=== PATIENT | male | born 1945 | race Caucasian/White ===

== ENCOUNTER → 2018-01-30 11:27 | Outpatient (CLI) | payer OTHER, MEDICARE, SELFPAY ==
[2018-01-30 12:42] LABS: Anion Gap 7 (5-15); BUN 19 mg/dL (7-18); BUN/Creat Ratio 21.5 RATIO (10-20); Calcium,Total 9.5 mg/dL (8.5-10.1); Chloride 105 mmol/L (98-107); Creatinine, Serum 0.88 mg/dL (0.70-1.30); EST Glomerular Filtration Rate 90 mL/min (>60); Est Glom Filt Rate - Afr Amer 109 mL/min (>60); Glucose 128 mg/dL (74-106); Potassium 3.9 mmol/L (3.5-5.1); Sodium Level 138 mmol/L (136-145)
== END ==
PROVIDERS: Family Provider Internal Medicine; PCP Internal Medicine; Visit Provider Internal Medicine Cardiovascular Disease
DX: I10 Essential (primary) hypertension (principal)
CPT/HCPCS: 36415; 80048

== ENCOUNTER → 2018-03-08 11:15 | Outpatient (CLI) | payer OTHER, MEDICARE, SELFPAY ==
[2018-03-08 12:44] LABS: AST(SGOT) 54 U/L (15-37); Alanine Aminotransfer ALT/SGPT 72 U/L (16-61); Albumin, Serum 3.5 g/dL (3.2-5.0); Alkaline Phosphatase 75 U/L (45-117); Bilirubin, Direct 0.13 mg/dL (0.00-0.30); Cholesterol 111 mg/dL (200); Globulin 3.6 g/dL (2.2-4.2); High Density Lipoprotein 38 mg/dL; Protein, Total 7.1 g/dL (6.4-8.2); Triglycerides 103 mg/dL; Very Low Density Lipoprotein 21 mg/dL (5-40)
== END ==
PROVIDERS: Family Provider Internal Medicine; PCP Internal Medicine; Visit Provider Internal Medicine Cardiovascular Disease
DX: E78.5 Hyperlipidemia, unspecified (principal)
CPT/HCPCS: 36415; 80061; 80076

== ENCOUNTER → 2018-03-15 11:14 | Outpatient (CLI) | payer OTHER, MEDICARE, SELFPAY ==
[2018-03-15 12:54] LABS: Amphetamine Urine VISTA NEGATIVE (<1000 ng/mL); Barbiturate Urine VISTA NEGATIVE (< 200 ng/mL); Benzodiazepine Urine VISTA NEGATIVE (< 200 ng/mL); Cocaine Urine VISTA NEGATIVE (< 300 ng/mL); Ecstacy Urine VISTA NEGATIVE (< 500 ng/mL); Methadone Urine VISTA NEGATIVE (< 300 ng/mL); PCP Urine VISTA NEGATIVE (< 25 ng/mL); THC Urine VISTA NEGATIVE (< 50 ng/mL); Vista UDS pH Range 7
== END ==
PROVIDERS: Family Provider Internal Medicine; PCP Internal Medicine; Visit Provider Anesthesiology Pain Medicine
DX: F11.20 Opioid dependence, uncomplicated (principal)
CPT/HCPCS: 80307

== ENCOUNTER → 2018-03-23 06:44 | Outpatient (CLI) | payer OTHER, MEDICARE, SELFPAY ==
--- NOTE | 2018-03-23 06:47 | ECHOD_ITS ---
Reason For Study: CHF Procedure This was a 2D Doppler, Color Flow transthoracic echocardiogram. Exam performed in department. Left Ventricle Normal size and thickness. The estimated ejection fraction is 65 %. Stage 1 diastolic dysfunction. No regional wall motion abnormalities noted. Right Ventricle Normal size and thickness. Normal systolic function. Atria Normal left atrium. Normal right atrium. Normal atrial septum. Mitral Valve The mitral valve is structurally normal. No prolapse or stenosis seen. Tricuspid Valve Normal tricuspid valve. Trivial tricuspid valve insufficiency. Right ventricular systolic pressure estimated to be 40 mmHg. Mild pulmonary hypertension. Aortic Valve Trisinus/trileaflet aortic valve. Aortic sclerosis, no stenosis. Trivial aortic valve insufficiency. Pulmonic Valve Normal pulmonic valve. Great Vessels Normal aortic root. Normal arch. Normal inferior vena cava. Inferior vena cava collapse with sniff. Pericardium/Pleural No pericardial effusion. MMode/2D Measurements & Calculations LVIDd: 4.6 cm IVSd: 1.1 cm Ao root diam: 3.4 cm LVIDs: 2.6 cm LVPWd: 1.1 cm LA dimension: 3.5 cm RVDd: 3.2 cm FS: 44.8 % LAV(MOD-bp): 55.0 ml LA A4 area: 19.3 cm2 RA A4 area: 13.8 cm2 LAV(MOD-sp2): 56.2 ml LAV(MOD-sp4): 51.2 ml Doppler Measurements & Calculations MV E max fermin: 82.6 cm/sec Lat Peak E' Fermin: 7.4 cm/sec Med Peak E' Fermin: 7.7 cm/sec MV A max fermin: 108.5 cm/sec E/E' lat: 11.1 E/E' med: 10.7 MV E/A: 0.76 Ao V2 max: 148.3 cm/sec AI max fermin: 477.1 cm/sec LV V1 max: 136.9 cm/sec Ao max P.8 mmHg AI max P.2 mmHg LV V1 max P.5 mmHg AI dec slope: 363.3 cm/sec2 AI P1/2t: 384.6 msec PA V2 max: 70.4 cm/sec TR max fermin: 298.5 cm/sec TR max P.7 mmHg Interpretation Summary The estimated ejection fraction is 65 %. Stage 1 diastolic dysfunction. Trivial tricuspid valve insufficiency. Right ventricular systolic pressure estimated to be 40 mmHg. Trivial aortic valve insufficiency. Compared to echo report dated 02/27/2016, LV function has remained the same. Unable to quantitate RVSP at that time. Ordering Physician: Villa Solo Referring Physician: Mariposa Dickerson Performed By: Leyda Mascorro RDCS, RVT
--- NOTE | 2018-03-23 09:47 | STRESSREP ---
Stress Test Report Date: 03/23/2018 Procedure: Pharmacologic stress nuclear imaging study Indications: Shortness of breath/dyspnea Consent: Per the patient Procedure: The patient underwent pharmacologic (Regadenoson) evaluation with a peak heart rate of 112 beats per minute (74 predicted maximal heart rate) and a peak blood pressure of 148/82 mmHg. The baseline ECG demonstrated normal sinus rhythm. The peak pharmacologic ECG demonstrated no obvious ECG changes. There were no cardiac dysrhythmias pretest, during pharmacologic infusion, or recovery. There was no complaint of chest discomfort during pharmacologic infusion or recovery. The examination was discontinued secondary to completion of protocol. Impression: 1. Pharmacologic (Regadenoson) evaluation 2. Peak pharmacologic ECG with no obvious ECG changes. 3. There were no cardiac dysrhythmias pretest, during pharmacologic infusion, or recovery 4. Nuclear images pending Myocardial perfusion imaging study: Technique: The patient was injected with 14.5 millicuries of technetium 99m Cardiolite and subsequently rest SPECT Cardiolite nuclear imaging was obtained in the horizontal long, vertical long, and short axis views. The patient underwent pharmacologic (Regadenoson) evaluation with a peak heart rate of 112 beats per minute (74 % percent predicted maximal heart rate) and a peak blood pressure of 148/82 mmHg. The patient was injected with 44.2 millicuries of technetium 99m Cardiolite and subsequently stress SPECT Cardiolite nuclear imaging was obtained in the horizontal long, vertical long, and short axis views. A gated Cardiolite study at peak stress was obtained. Interpretation: Rest and stress SPECT Cardiolite nuclear imaging status post realignment, normalization, and attenuation correction demonstrate relative uniform tracer uptake and myocardial perfusion appearing within normal limits. There is end systolic thickening and brightening. The gated Cardiolite study demonstrates myocardial thickening and inward wall motion. The reported LVEF is 77 %. Impression: 1. Rest and stress SPECT Cardiolite nuclear imaging demonstrate relative uniform tracer uptake and myocardial perfusion appearing within normal limits. 2. The gated Cardiolite study reports an LVEF of 77%. This note was generated with [employer] software. It may contain incorrect words, spelling, and punctuation that were not noted in checking the note before signing.
== END ==
PROVIDERS: Family Provider Internal Medicine; PCP Internal Medicine; Visit Provider Internal Medicine Cardiovascular Disease
DX: I45.6 Pre-excitation syndrome (principal); E78.5 Hyperlipidemia, unspecified; I10 Essential (primary) hypertension; I48.0 Paroxysmal atrial fibrillation
CPT/HCPCS: 78452; 93017; 93306; A9500; A4216; J2785

== ENCOUNTER → 2019-03-06 | Outpatient (CLI) | payer OTHER, MEDICARE, SELFPAY ==
[2018-10-16 11:43] VITALS: BMI 31.6
--- NOTE | 2019-03-06 17:30 | MRI_ITS ---
STUDY: MRI LUMBAR SPINE WITHOUT CONTRAST REASON FOR EXAM: Male, 73 years old. Back pain TECHNIQUE: Standardized fat and water weighted pulse sequences were obtained in the sagittal and axial planes. COMPARISON: 02/04/2016 FINDINGS: T12-L1: Normal endplates. Normal disc height, hydration and morphology. Normal bilateral facet joints. Normal central canal and bilateral lateral recesses. Normal bilateral intervertebral neural foramina. Normal lumbar lordosis. There is no substantial scoliosis. Normal conus medullaris that terminates at the L2 level. Stable remote L5 superior endplate compression deformity with vertebroplasty changes. Stable moderate retropulsion at the L5 level. L1-2: Normal endplates. Normal disc height, hydration and morphology. Normal bilateral facet joints. Normal central canal and bilateral lateral recesses. Normal bilateral intervertebral neural foramina. L2-3: Bulging annulus and bilateral facet hypertrophy without compressive sequelae. L3-4: Bulging annulus and bilateral facet hypertrophy with mild bilateral foraminal stenoses. L4-5: Disc osteophyte complex and bilateral facet hypertrophy with mild bilateral foraminal stenoses. L5-S1: Bulging annulus and bilateral facet hypertrophy with mild right foraminal stenosis. Normal visualized sacral ala. Normal visualized paraspinous soft tissue structures. Left renal cyst. MRI/Spine Lumbar (Routine) IMPRESSION: Stable remote L5 superior endplate compression deformity with vertebroplasty changes. Stable moderate retropulsion at the L5 level. No acute compression fractures are seen. Multilevel degenerative disease as described. No evidence of nerve root impingement. Electronically Signed: Eliceo Vegas MD at 19:04 EDT Tel , Service support ,
== END | disposition home or self-care (01) ==
LOC: MRI 17:02
PROVIDERS: Family Provider Internal Medicine; PCP Internal Medicine; Referring Provider Anesthesiology Pain Medicine; Visit Provider Anesthesiology Pain Medicine
DX: M54.9 Dorsalgia, unspecified (principal); M79.606 Pain in leg, unspecified
CPT/HCPCS: 72148

== ENCOUNTER → 2019-05-11 08:59 | Outpatient (CLI) | payer OTHER, MEDICARE, SELFPAY ==
[2018-10-16 11:43] VITALS: BMI 31.6
[2019-05-11 11:42] LABS: AST(SGOT) 66 U/L (15-37); Alanine Aminotransfer ALT/SGPT 59 U/L (16-61); Albumin, Serum 3.5 g/dL (3.2-5.0); Alkaline Phosphatase 81 U/L (45-117); Bilirubin, Direct 0.15 mg/dL (0.00-0.30); Cholesterol 112 mg/dL (200); High Density Lipoprotein 26 mg/dL; Protein, Total 7.5 g/dL (6.4-8.2); Triglycerides 202 mg/dL; Very Low Density Lipoprotein 40 mg/dL (5-40)
== END ==
PROVIDERS: Family Provider Internal Medicine; PCP Internal Medicine; Referring Provider Internal Medicine Cardiovascular Disease; Visit Provider Internal Medicine Cardiovascular Disease
DX: E78.5 Hyperlipidemia, unspecified (principal); Z79.899 Other long term (current) drug therapy
CPT/HCPCS: 36415; 80061; 80076

== ENCOUNTER 2019-05-27 00:55 | Observation (INO) | payer OTHER, MEDICARE, SELFPAY ==
[2019-05-14 13:18] VITALS: BMI 30.5
[2019-05-27] VITALS (18 sets, daily range): BP systolic 92–196; BP diastolic 55–92; PULSE 69–97; RESP 16–23; TEMP 36.5–37.1; O2SAT 95–99; BMI 30.8; BMI 42.9
--- NOTE | 2019-05-27 01:06 | EKG12_ITS ---
Test Reason : STROKE ALERT Blood Pressure : / mmHG Vent. Rate : 080 BPM Atrial Rate : 080 BPM P-R Int : 146 ms QRS Dur : 086 ms QT Int : 424 ms P-R-T Axes : 031 024 023 degrees QTc Int : 489 ms Normal sinus rhythm Prolonged QT Abnormal ECG Confirmed by ALFREDITO REEVES, SHASHI ([id number]), supervising editor news reel ELLIOTT URIAS ([id number]) on 05/28/2019 1:49:20 PM Referred By: BB Confirmed By:SHASHI GLASER MD
--- NOTE | 2019-05-27 01:06 | CT_ITS ---
We are attempting to reach an attending provider to discuss findings. An addendum with communication details will be sent when the communication is complete. HISTORY: SLURRED SPEECH AND DIZZINESS WHILE OUTSIDE, HX HTN TECHNIQUE: CT angiogram of the brain was performed without and with IV contrast. CT angiogram images of the neck were obtained with IV contrast. 3D MIP and volume rendered reconstructions were reviewed to aid in vascular evaluation. A radiation dose optimization technique was used for this scan. IV Contrast dosage and agent: 100 ml Isovue 370 Number of images including paperwork: 714 COMPARISON: None CTA head: FINDINGS: BRAIN PARENCHYMA: No acute hemorrhage or mass. No definite acute infarct; MRI more sensitive. White matter hypodensity is nonspecific but most commonly seen with chronic ischemic changes. Generalized atrophy. EXTRA-AXIAL SPACES: No acute hemorrhage. VENTRICULAR SYSTEM: No hydrocephalus. PARANASAL SINUSES AND MASTOIDS: No air-fluid level in the imaged extent. Near complete opacification of the sphenoid sinuses. ORBITS: Unremarkable imaged extent. SKELETON AND SOFT TISSUES: Calvarium intact. ASPECTS score: 10 INTERNAL CAROTID ARTERIES: No significant stenosis of the intracranial segments. ANTERIOR CEREBRAL ARTERIES: No significant stenosis of the visualized segments. ANTERIOR COMMUNICATING ARTERY: Present. MIDDLE CEREBRAL ARTERIES: No significant stenosis of the visualized segments. VERTEBRAL ARTERIES: No significant stenosis of the intradural/visualized segments. BASILAR ARTERY: No significant stenosis. POSTERIOR CEREBRAL ARTERIES: No significant stenosis of the visualized segments. POSTERIOR COMMUNICATING ARTERIES: Present. No evidence of intracranial aneurysm or vascular malformation. IMPRESSION: 1. No acute intracranial abnormality. 2. No arterial occlusion, aneurysm or vascular malformation. CTA neck: FINDINGS: AORTIC ARCH AND BRANCHES: No dissection. RIGHT CCA: No occlusion, significant stenosis or dissection. RIGHT ICA: No occlusion, significant stenosis or dissection. Mild atherosclerotic plaque of the proximal ICA. LEFT CCA: No occlusion, significant stenosis or dissection. LEFT ICA: No occlusion, significant stenosis or dissection. Mild atherosclerotic plaque of the proximal ICA. RIGHT VERTEBRAL ARTERY: No occlusion, significant stenosis or dissection. LEFT VERTEBRAL ARTERY: No occlusion, significant stenosis or dissection. NECK SOFT TISSUES: Unremarkable. LUNG APICES: Unremarkable. BONES: Unremarkable. IMPRESSION: Unremarkable CT angiogram of the neck. Individualized dose optimization techniques were used for this CT. at 0133 Reported and signed by: Nanette Saleh MD Electronically Signed: Nanette Saleh MD at 1:32 EDT Tel , Service support , HISTORY: SLURRED SPEECH AND DIZZINESS WHILE OUTSIDE, HX HTN TECHNIQUE: CT angiogram of the brain was performed without and with IV contrast. CT angiogram images of the neck were obtained with IV contrast. 3D MIP and volume rendered reconstructions were reviewed to aid in vascular evaluation. A radiation dose optimization technique was used for this scan. IV Contrast dosage and agent: 100 ml Isovue 370 Number of images including paperwork: 714 COMPARISON: None CTA head: FINDINGS: BRAIN PARENCHYMA: No acute hemorrhage or mass. No definite acute infarct; MRI more sensitive. White matter hypodensity is nonspecific but most commonly seen with chronic ischemic changes. Generalized atrophy. EXTRA-AXIAL SPACES: No acute hemorrhage. VENTRICULAR SYSTEM: No hydrocephalus. PARANASAL SINUSES AND MASTOIDS: No air-fluid level in the imaged extent. Near complete opacification of the sphenoid sinuses. ORBITS: Unremarkable imaged extent. SKELETON AND SOFT TISSUES: Calvarium intact. ASPECTS score: 10 INTERNAL CAROTID ARTERIES: No significant stenosis of the intracranial segments. ANTERIOR CEREBRAL ARTERIES: No significant stenosis of the visualized segments. ANTERIOR COMMUNICATING ARTERY: Present. MIDDLE CEREBRAL ARTERIES: No significant stenosis of the visualized segments. VERTEBRAL ARTERIES: No significant stenosis of the intradural/visualized segments. BASILAR ARTERY: No significant stenosis. POSTERIOR CEREBRAL ARTERIES: No significant stenosis of the visualized segments. POSTERIOR COMMUNICATING ARTERIES: Present. No evidence of intracranial aneurysm or vascular malformation. IMPRESSION: 1. No acute intracranial abnormality. 2. No arterial occlusion, aneurysm or vascular malformation. CTA neck: FINDINGS: AORTIC ARCH AND BRANCHES: No dissection. RIGHT CCA: No occlusion, significant stenosis or dissection. RIGHT ICA: No occlusion, significant stenosis or dissection. Mild atherosclerotic plaque of the proximal ICA. LEFT CCA: No occlusion, significant stenosis or dissection. LEFT ICA: No occlusion, significant stenosis or dissection. Mild atherosclerotic plaque of the proximal ICA. RIGHT VERTEBRAL ARTERY: No occlusion, significant stenosis or dissection. LEFT VERTEBRAL ARTERY: No occlusion, significant stenosis or dissection. NECK SOFT TISSUES: Unremarkable. LUNG APICES: Unremarkable. BONES: Unremarkable. CT/CTA Head AND Neck W/ Contrast IMPRESSION: Unremarkable CT angiogram of the neck. Individualized dose optimization techniques were used for this CT. at 0133 Reported and signed by: Nanette Saleh MD Electronically Signed: Nanette Saleh MD at 1:33 EDT Tel , Service support ,
--- NOTE | 2019-05-27 01:07 | ED.VIS.STROK ---
History of Present Illness Chief Complaint: Neuro S/Sx Informant: Patient, Family, [facility] Onset: Hours - 1, at 0000 Context: Sudden Onset Timing: Continuous, Waxes and wanes Narrative: Patient states he went out onto the porch because he thought he heard someone messing with his car, he states that some point around that time he remembers feeling dizzy, like he was on a Iain wheel, and slurred speech was noticed by his . He does not think his speech is abnormal but she states this is very abnormal for him despite his loose dentures which she has had for 40 years. He states he is not feeling too dizzy right now. He does not remember turning his head, suddenly changing positions or anything else that was obviously related to the onset of symptoms. He did not feel like he was going to pass out, have any chest discomfort, shortness of breath, he has no neck pain, or any peripheral neurologic symptoms in his extremities. He has had no recent head injury. No recent bleeding from anywhere and is on no anticoagulants. No recent surgeries. Recently had some medication changes for blood pressure because it was high, his states that earlier tonight measured 190 systolic, but now it is measuring in the 90s. Patient does not notice dysarthria. states his speech is still not back to normal, but it is significantly better than it was before. He currently does not have the dizziness while resting on the cot. - Past Medical History (1) Chronic low back pain Status: Chronic (2) Hyperlipidemia Status: Chronic (3) Hypertension Status: Chronic (4) Paroxysmal atrial fibrillation Status: Chronic (5) Qgmzr-Umymzynba-Vmpzx (WPW) syndrome Status: Chronic Past Medical History - Allergies and Home Meds Allergies/Adverse Reactions: Allergies BETA BLOCKERS Adverse Reaction (Severe, Uncoded 05/27/19 00:58) SERRATO PARKINSON WHITE:CANNOT TAKE CALCIUM CHANNEL BLOCKERS Adverse Reaction (Severe, Uncoded 05/27/19 00:58) SERRATO PARKINSON WHITE: CANNOT TAKE DIGOXIN Adverse Reaction (Severe, Uncoded 05/27/19 00:58) SERRATO PARKINSON WHITE: CANNOT TAKE Primary Care Physician: Mariposa Dickerson MD [Primary Care Provider] - Lives: Spouse/ Significant Other Smoking Status: Never smoker Drugs: None Review of Systems General: Reports: Sweats. 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 Denies: Visual changes - bilaterally, Blurred vision - right, Diplopia ENT: Denies: Bilateral ear pain - And no ringing/hearing change, Rhinorrhea, Sore throat Cardiovascular: Denies: Chest pain, Palpitations Respiratory: Denies: Dyspnea, Cough, Dyspnea on exertion Gastrointestinal: Denies: Abdominal pain, Nausea, Vomiting, Diarrhea, Melena, Hematochezia Genitourinary: Denies: Dysuria, Hematuria, Frequency Musculoskeletal: Reports: Back pain - Chronic, unchanged, low back, Extremity Pain - Chronic knee pain bilaterally. Denies: Swelling Skin: Denies: Rash, Wounds Neurological: Reports: - - Dizziness. See HPI. Slurred speech.. Denies: Headache, Weakness, Numbness STROKE Vital Signs/Narrative: Vital Signs Temp Pulse Resp BP Pulse Ox 05/27/19 00:56 98.3 F 79 18 92/55 L 96 Inital Vital Signs reviewed: Yes - NIHSS Initial 1a Level of Consciousness: 0 1b LOC Questions (Score 2 if aphasic/stupor): 1 - Incorrect month, corrected himself after initially incorrect 1c LOC Commands (Only score 1st attempt): 0 2 Best Gaze (If aphasic, use reflexive mvmts.): 0 3 Visual: 0 4 Facial Palsy: 0 5 Motor Arm Right (UN = amputation/fusion): 0 5 Motor Arm Left: 0 6 Motor Leg Right: 0 6 Motor Leg Left: 0 7 Limb ataxia (Only + if out of proportion): 0 8 Sensory (Aphasia/stupor=0 or 1, coma=2): 0 9 Best Language: 0 10 Dysarthria (mute, coma=2, intubated=UN): 1 11 Extinction and Inattention (only scored if +): 0 Total Score: 2 General: Well nourished, Well developed Head: Normocephalic, Atraumatic Eyes: Perrl, EOMI ENT: Moist mucous membranes, No rhinorrhea Neck: Supple, Nontender, No lymphadenopathy, - - No carotid bruits bilaterally Cardiovascular: Regular rate, Regular rhythm, No murmurs, Normal S1, Normal S2 Respiratory: No distress, CTA bilaterally, Chest nontender Abdomen: Soft, Nontender, Nondistended, Normal bowel sounds Back: Nontender, Normal Inspection Extremities: Nontender, No edema. Negative for: Calf Tenderness Skin: Normal color, No rash, No Trauma Neurological: Alert, Oriented x3, Cranial nerves II-XII grossly intact, Normal Strength, Normal Sensation, - - Normal [id number]-[id number] and [id number]-[id number] bilaterally Psychological: Normal affect Diagnostic/Tx/Re-eval Received telephone call at 0136 from radiologist; negative plain CT and CTA. - Rhythm Strip Rhythm Strip: Sinus Rhythm Rate: 80 Ectopy: None - EKG Initial EKG Interpretation: Sinus Rhythm, No Acute Injury Pattern - Medical Decision Making Stroke Team Activated: Yes Reviewed Inclusion/Exclusion criteria: Yes Was Patient considered for Endovascular Intervention?: No - neg CTA, improving clinically IV Alteplase (t-PA) Administered: No - improving clinically Tele-stroke consultation performed emergently with [facility] using our video robot, after full evaluation, his NIH is now 0 per neurology and IV TPA is not indicated due to rapid improvement. Discussed with hospitalist who is okay with admitting him to PCU for stroke work-up. He is getting IV fluids and his pressure improved from the 90s to 114/57. He is feeling better he was allowed to drink some water and feels his speech is better because of that. states that his speech was almost unintelligible initially given her initial concern, that he was significantly improved upon arrival. He took his aspirin today earlier, 81 mg. Critical care time (excluding procedures): Including time spent: - Discussing with patient, family, consultants, arranging admission, direct patient care at the bedside. Total 35 minutes. ED Disposition - Plan for ED Patient: Disposition: Acute Care Hospital [facility] Diagnosis: TIA (transient ischemic attack), Renal insufficiency Referrals: Mariposa Dickerson MD [Primary Care Provider] -
[2019-05-27 01:11] LABS: Absolute Lymphocyte Count 1.42 X10^3/uL (0.83-4.51); Absolute Neutrophil Count 5.4 X10^3/uL (2.0-7.7); Basophil# 0.04 X10^3/uL; Basophil% 0.5 % (0-1); Eosinophil# 0.19 X10^3/uL; Eosinophils% 2.5 % (0-5); Hematocrit 31.8 % (40-54); Hemoglobin 10.9 g/dL (13.0-16.5); Lymphocyte # 1.42 X10^3/ul (4.0); Lymphocyte % 18.4 % (19-41); Mean Corp Hgb Conc 34.3 g/dL (32-36); Mean Corpuscular Hgb 33.1 pg (27.0-32.0); Mean Corpuscular Volume 96.7 fL (80-94); Monocyte# 0.61 X10^3/uL; Monocyte% 7.9 % (0-10); NRBC Flagged by Analyzer 0 % (0-5); Neutrophil # 5.42 X10^3/uL (2.7-7.7); Neutrophil % 70.2 % (47-70); Platelet Count 118 K/mm3 (150-450); RBC Distribution Width CV 13.1 % (11.6-14.6); RBC Distribution Width SD 46.5 fl (35.1-43.9); Red Blood Count 3.29 M/mm3 (4.6-6.2); White Blood Count 7.7 K/mm3 (4.4-11.0)
[2019-05-27 01:16] LABS: International Normalized Ratio 1.2; Prothrombin Time (Protime)PT. 15.3 SECONDS (11.7-14.9)
--- NOTE | 2019-05-27 01:23 | ED.RN ---
0110 TELE-STROKE NOTIFIED VIA PHONE, SPOKE TO DR GROSS.
--- NOTE | 2019-05-27 01:28 | ED.RN ---
DR ТАТЬЯНА SERRANO VIA TELESTROKE EXAMINING THE PT.
[2019-05-27 01:29] LABS: Anion Gap 6 (5-15); BUN 26 mg/dL (7-18); BUN/Creat Ratio 18.6 RATIO (10-20); Calcium,Total 8.7 mg/dL (8.5-10.1); Chloride 108 mmol/L (98-107); EST Glomerular Filtration Rate 53 mL/min (>60); Est Glom Filt Rate - Afr Amer 64 mL/min (>60); Estimated Creatinine Clearance 55.45 ml/min; Glucose 329 mg/dL (74-106); Potassium 3.9 mmol/L (3.5-5.1); Sodium Level 138 mmol/L (136-145)
--- NOTE | 2019-05-27 02:57 | HP.PCM_ITS ---
Problem List (1) Stroke-like symptoms Status: Acute (2) Hypersomnia Status: Inactive History of Present Illness Date of Admission: 05/27/19 Chief Complaint: WOBBLING GAIT AND SLURRY SPEECH The patient is a 74 year old M with a significant history of hypertension; hyperlipidemia; Edlq-Dqszajarl-Qehtf syndrome; and chronic pain who presented emergency department with wobbling gait and slurred speech. His symptoms started few hours (about 2 hours and 20minutes) before presentation .. Patient denies any change in his vision or swallowing difficulties. His patient was diaphoretic and clammy. Patient was questioning whether he took an accidental extra dose of his Zanaflex precipitating these symptoms. CTA head and neck at emergency department did not show any acute disease. Stroke alert was called at the emergency department and the case was discussed with tele-neurologist who recommended inpatient admission with stroke work-up. Per patient's because of hypertension and Strong Parkinson White syndrome patient is scheduled for an echocardiogram; stress test; sleep study and probable heart cath. Patient follows up with Dr. Solo, senior ssis developer. 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, G89.29 Osteoarthritis of hip M16.9 Allergies BETA BLOCKERS Adverse Reaction (Severe, Uncoded 05/27/19 00:58) ROJELIO VILLEGAS:CANNOT TAKE CALCIUM CHANNEL BLOCKERS Adverse Reaction (Severe, Uncoded 05/27/19 00:58) ROJELIO VILLEGAS: CANNOT TAKE DIGOXIN Adverse Reaction (Severe, Uncoded 05/27/19 00:58) ROJELIO VILLEGAS: CANNOT TAKE Home Medications: Ambulatory Orders Medication Instructions Recorded calcium carb-ergocalciferol (vit tab PO DAILY 01/20/18 D2) 600 mg calcium-200 unit tablet acetaminophen 500 mg tablet 1,000 mg PO QHS tab 02/03/18 aspirin 81 mg tablet,delayed 81 mg PO QDAY tab 02/03/18 release bisacodyl 5 mg tablet,delayed 5 mg PO QDAY PRN tab 02/03/18 release diphenhydramine 25 mg tablet 50 mg PO QHS PRN tab 02/03/18 docusate sodium 100 mg capsule 100 mg PO BID PRN 02/03/18 morphine ER 30 mg-naltrexone 1.2 1 cap PO QDAY 02/03/18 mg capsule, extend release, oral only multivitamin tablet 1 tab PO QDAY 02/03/18 oxycodone-acetaminophen 5 mg-325 1 tab PO TID PRN tab 02/03/18 mg tablet tizanidine 4 mg capsule 4 mg PO QHS PRN cap 10/16/18 potassium chloride ER 10 mEq 10 meq PO QDAY #30 cap 02/07/19 capsule,extended release simvastatin 20 mg tablet 20 mg PO QPM #90 tab 04/27/19 furosemide 40 mg tablet 40 mg PO DAILY #90 tab 05/14/19 losartan 50 mg tablet 50 mg PO BID #180 tab 05/14/19 Surgical History: Surgical History (Last Reviewed 05/27/19 @ 03:53 by Sundeep Matson MD) H/O kyphoplasty Z98.890 History of hand surgery Z98.890 multiple as a child, 19 surgeries for tendon repair of hands Lives: Spouse/ Significant Other Smoking Status: Never smoker Alcohol: None Drugs: None - *Family History Maternal Family History: Family History (Last Reviewed 05/27/19 @ 04:04 by Sundeep Matson MD) Sister Diabetes Father CAD (coronary artery disease) Myocardial infarction Mother COPD (chronic obstructive pulmonary disease) Review of Systems Constitutional: Denies: Chills, Fever, Weight Change HEENT: Denies: Head Aches, Sinus Congestion, Sinus Drainage Cardiovascular: Denies: Chest Pain, Palpitations Respiratory: Denies: Cough, Shortness of breath at rest, Sputum production Gastrointestinal: Denies: Abdominal Pain, Nausea, Vomiting Genitourinary: Denies: Dysuria Musculoskeletal: Denies: Joint Pain, Joint Tenderness Skin: Denies: Rash, Wounds Neurological: Reports: Slurred speech, Incoordination. Denies: Focal weakness, Numbness, Tingling Psychiatric: Denies: Anxiety, Depression, Homicidal Ideations, Suicidal Ideations Hematologic/ Lymphatic: Denies: Easy Bruising, Easy Bleeding VTE Information - Inpt Only VTE Present on Admission: No VTE Mechan Device Prophylaxis: SCD's VTE Pharm Prophylaxis ordered?: No Patient Problems: Active and Suspected Problems (Last Reviewed 05/27/19 @ 03:53 by Sundeep Matson MD) TIA (transient ischemic attack) (Acute) Renal insufficiency (Acute) Stroke-like symptoms (Acute) - Physical Exam General: Alert, Oriented x3, Cooperative HEENT: Atraumatic, PERRLA, EOMI, Normocephalic Neck: Supple, No JVD, Negative Carotid Bruits Lungs: Clear to auscultation, Normal air movement Cardiovascular: Regular rate, No murmurs Abdomen: Bowel Sounds Present, Soft, Non Tender Extremities: No edema, Capillary Refill Less than 3 Seconds Skin: No rashes, No breakdown Musculoskeletal: No Tenderness to Palpation of Joints or Extremities Neurological: Cranial nerves II-XII grossly intact - Except 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 There was no dysmetria. Strength 5/5 throughout. Psych/Mental Status: Normal Affect, Appropriate Vital Signs Temp Pulse Resp BP Pulse Ox 98.3 F 83 23 H 102/57 L 97 05/27/19 01:05 05/27/19 02:17 05/27/19 02:17 05/27/19 02:17 05/27/19 02:17 Oxygen Flow Rate (L/min) 2 Oxygen Delivery Method Room Air Weight: 106.5 kg Body Mass Index (BMI) 42.9 Finger Stick Blood Glucose 283 Laboratory Tests Past 24 Hrs 05/27/19 05/27/19 05/27/19 01:04 01:04 01:04 WBC 7.7 RBC 3.29 L Hgb 10.9 L Hct 31.8 L MCV 96.7 H MCH 33.1 H MCHC 34.3 RDW Std Deviation 46.5 H RDW Coeff of Nora 13.1 Plt Count 118 L MPV 9.0 Immature Gran % (Auto) 0.500 Neut % (Auto) 70.2 H Lymph % (Auto) 18.4 L Pickett % (Auto) 7.9 Eos % (Auto) 2.5 Baso % (Auto) 0.5 Absolute Neuts (auto) 5.4 Absolute Lymphs (auto) 1.42 Absolute Nucleated RBC 0.00 Nucleated RBC % 0 PT 15.3 H INR 1.2 APTT 32.0 Sodium 138 Potassium 3.9 Chloride 108 H Carbon Dioxide 24.0 Anion Gap 6 BUN 26 H Creatinine 1.40 H Estim Creat Clear Calc 55.45 Est GFR (MDRD) Af Amer 64 Est GFR (MDRD) Non-Af 53 L BUN/Creatinine Ratio 18.6 Glucose 329 H Calcium 8.7 Troponin I < 0.015 Assessment/Plan All Active Problems (Last Reviewed 05/27/19 @ 03:53 by Sundeep Matson MD) TIA (transient ischemic attack) (Acute) Renal insufficiency (Acute) Stroke-like symptoms (Acute) The patient is a 74 year old M with a significant history of hypertension; hyperlipidemia; Rkzm-Gdbsxhulj-Phzep syndrome; and chronic pain who presented emergency department with wobbling gait and slurred speech consistent with strokelike symptoms. Stroke- like symptoms NINDS NIH Scale was 2 initially. Later on it changed to a 0. CTA Head/Neck at the ED was unremarkable. Tele neurologist recommended a transthoracic echocardiogram, EKG, telemetry, MRI head, MRA head, MRA neck. Physical therapy, speech therapy, occupational therapy, bedside swallow evaluation, pneumatic compression boots, stroke education., Lipid profile, hemoglobin A1c, CMP, CBC differential, urinalysis. Ordered as such Daily aspirin continued. Home statin continued.. Although patient is noted to have very high blood pressure chronically, reported that paramedics found his blood pressure to be about 80/50. And on presentation at the hospital his blood pressure was 92/55. His systolic blood pressure was persistently in the 90s. With IV fluid his blood pressure was 114/57. We will continue patient on IV fluid especially as patient has GASTON. Discontinue all blood pressure medication at this time and allow for permissive hypertension. GASTON On presentation his creatinine was 1.40. Review of old records show that his creatinine 01/30/2018 was 0.88. Received normal saline bolus in the emergency department. Continue patient on gentle normal saline. BUN is 26. BUN over creatinine is 18.6. Probable ATN. Cannot rule out prerenal etiology. His reported patient takes Lasix because of pulmonary edema but patient does not have CHF. Lasix and Losartan held at this time.. Hold other nephrotoxic's. Trend BMP. Acute Hyperglycemia On presentation his glucose was 329. A1c as above Accu-Chek with correction scale insulin ordered. Hypotension Hold Losartan and Lasix Trend BP Received IVF at ED. Continue IVF Chronic pain Patient sees Dr. Coughlin, pain management. Morphine with naltrexone continued. Percocet continued. Tizanidine continued DVT prophylaxis SCD Code Visit OBSV E&M: 93041 Initial observation care L3
--- NOTE | 2019-05-27 03:11 | ED.RN ---
NIH DONE WITH PCU NURSE AND IT WAS A 0.
[2019-05-27] MEDS: 0.9% Normal Saline 1,000 ML 100 ML IV (03:30)
[2019-05-27] MEDS: Insulin Lispro 100 UNIT/ML INSULN.PEN SC ×4 (06:46→21:24)
[2019-05-27] MEDS: 0.9% NaCl Peripheral Flush Adult/Peds IV (06:47)
[2019-05-27] MEDS: oxyCODONE 5 MG Tablet PO ×3 (07:00→23:29)
[2019-05-27 07:24] LABS: Bacteria 0 SEEN /hpf (None Seen); Mucous, Urine 0 SEEN /hpf (<or=2+); Red Blood Cells-Urine 0 SEEN /hpf (0-5); Squamous Epithelial Cells - UA 0 SEEN /hpf (0-5); White Blood Cells 0 SEEN /hpf (0-5)
[2019-05-27 07:36] LABS: ALB/GLOB Ratio 0.9 RATIO (0.9-2.4); AST(SGOT) 89 U/L (15-37); Alanine Aminotransfer ALT/SGPT 64 U/L (16-61); Albumin, Serum 3.1 g/dL (3.2-5.0); Alkaline Phosphatase 78 U/L (45-117); Anion Gap 13 (5-15); BUN 29 mg/dL (7-18); BUN/Creat Ratio 23.8 RATIO (10-20); Calcium,Total 8.8 mg/dL (8.5-10.1); Chloride 107 mmol/L (98-107); Cholesterol 102 mg/dL (200); Creatinine, Serum 1.22 mg/dL (0.70-1.30); EST Glomerular Filtration Rate 62 mL/min (>60); Est Glom Filt Rate - Afr Amer 75 mL/min (>60); Estimated Creatinine Clearance 42.27 ml/min; Globulin 3.6 g/dL (2.2-4.2); Glucose 266 mg/dL (74-106); High Density Lipoprotein 25 mg/dL; Potassium 4.3 mmol/L (3.5-5.1); Protein, Total 6.7 g/dL (6.4-8.2); Sodium Level 140 mmol/L (136-145); Triglycerides 200 mg/dL; Very Low Density Lipoprotein 40 mg/dL (5-40)
[2019-05-27 08:05] LABS: Color, Urine Yellow (Yellow); Glucose, Dipstick 250 mg/dl (Normal); Ketone-Dipstick 5 mg/dl (Negative); Leukocyte Esterase-Dipstick 25 /ul (Negative); Nitrite-Dipstick Negative (Negative); Occult Blood-Urine Negative /ul (Negative); Protein-Dipstick 30 mg/dl (Negative); Urine Bilirubin Dipstick Negative (Negative); Urine Clarity Clear (Clear); Urine Urobilinogen Normal (Normal)
[2019-05-27 08:41] LABS: Hemoglobin A1c 8.4 % (4.2-6.3)
--- NOTE | 2019-05-27 10:46 | PN_ITS ---
<Lisa Campbell - Last Filed: 05/27/19 11:14> Patient Problems: Active and Suspected Problems (Last Reviewed 05/27/19 @ 04:04 by Sundeep Matson MD) TIA (transient ischemic attack) (Acute) Renal insufficiency (Acute) Stroke-like symptoms (Acute) Subjective: Patient seen and examined. Feels improved. Denies vision changes, slurred speech, unilateral weakness or other neuro symptoms. Patient reports he took a Zanaflex prior to onset of symptoms. He also reports they do not have air conditioning in the home and was very hot during the episode prior to admission. - Physical Exam General: Alert, Oriented x3, Cooperative HEENT: Atraumatic, PERRLA, EOMI, Normocephalic Neck: Supple, No JVD, Negative Carotid Bruits Lungs: Clear to auscultation, Normal air movement Cardiovascular: Regular rate, Regular Rhythm, Normal S1, Normal S2, No murmurs Abdomen: Bowel Sounds Present, Soft, Non Tender, Non-Distended Extremities: No clubbing, No cyanosis, No edema, Capillary Refill Less than 3 Seconds Skin: No rashes, No breakdown Musculoskeletal: No Tenderness to Palpation of Joints or Extremities Neurological: Cranial nerves II-XII grossly intact, Neuro grossly intact Psych/Mental Status: Normal Affect, Appropriate Vital Signs Temp Pulse Resp BP Pulse Ox 98.7 F 73 18 141/81 H 97 05/27/19 06:35 05/27/19 07:07 05/27/19 06:35 05/27/19 06:35 05/27/19 07:32 Oxygen Flow Rate (L/min) 2 Oxygen Delivery Method Room Air Weight: 236 lb 15.951 oz Body Mass Index (BMI) 42.9 Finger Stick Blood Glucose 283 Intake and Output for Last 24 Hours 05/25/19 05/26/19 05/27/19 23:59 23:59 23:59 Intake Total 697 / 697 Balance 697 / 697 Laboratory Tests Past 24 Hrs 05/27/19 05/27/19 05/27/19 01:04 01:04 01:04 WBC 7.7 RBC 3.29 L Hgb 10.9 L Hct 31.8 L MCV 96.7 H MCH 33.1 H MCHC 34.3 RDW Std Deviation 46.5 H RDW Coeff of Nora 13.1 Plt Count 118 L MPV 9.0 Immature Gran % (Auto) 0.500 Neut % (Auto) 70.2 H Lymph % (Auto) 18.4 L Duval % (Auto) 7.9 Eos % (Auto) 2.5 Baso % (Auto) 0.5 Absolute Neuts (auto) 5.4 Absolute Lymphs (auto) 1.42 Absolute Nucleated RBC 0.00 Nucleated RBC % 0 PT 15.3 H INR 1.2 APTT 32.0 Sodium 138 Potassium 3.9 Chloride 108 H Carbon Dioxide 24.0 Anion Gap 6 BUN 26 H Creatinine 1.40 H Estim Creat Clear Calc 55.45 Est GFR (MDRD) Af Amer 64 Est GFR (MDRD) Non-Af 53 L BUN/Creatinine Ratio 18.6 Glucose 329 H Hemoglobin A1c Calcium 8.7 Total Bilirubin AST ALT Alkaline Phosphatase Troponin I < 0.015 Total Protein Albumin Globulin Albumin/Globulin Ratio Triglycerides Cholesterol LDL Cholesterol VLDL Cholesterol HDL Cholesterol Urine Color Urine Clarity Urine pH Ur Specific [place] Urine Protein Urine Glucose (UA) Urine Ketones Urine Occult Blood Urine Nitrite Urine Bilirubin Urine Urobilinogen Ur Leukocyte Esterase Urine RBC Urine WBC Ur Squamous Epith Cells Urine Bacteria Urine Mucus 05/27/19 05/27/19 05/27/19 03:21 03:21 06:33 WBC RBC Hgb Hct MCV MCH MCHC RDW Std Deviation RDW Coeff of Nora Plt Count MPV Immature Gran % (Auto) Neut % (Auto) Lymph % (Auto) Duval % (Auto) Eos % (Auto) Baso % (Auto) Absolute Neuts (auto) Absolute Lymphs (auto) Absolute Nucleated RBC Nucleated RBC % PT INR APTT Sodium Potassium Chloride Carbon Dioxide Anion Gap BUN Creatinine Estim Creat Clear Calc Est GFR (MDRD) Af Amer Est GFR (MDRD) Non-Af BUN/Creatinine Ratio Glucose Hemoglobin A1c 8.4 H Calcium Total Bilirubin AST ALT Alkaline Phosphatase Troponin I < 0.015 Total Protein Albumin Globulin Albumin/Globulin Ratio Triglycerides Cancelled Cholesterol Cancelled LDL Cholesterol Cancelled VLDL Cholesterol Cancelled HDL Cholesterol Cancelled Urine Color Urine Clarity Urine pH Ur Specific [place] Urine Protein Urine Glucose (UA) Urine Ketones Urine Occult Blood Urine Nitrite Urine Bilirubin Urine Urobilinogen Ur Leukocyte Esterase Urine RBC Urine WBC Ur Squamous Epith Cells Urine Bacteria Urine Mucus 05/27/19 05/27/19 06:48 06:55 WBC RBC Hgb Hct MCV MCH MCHC RDW Std Deviation RDW Coeff of Nora Plt Count MPV Immature Gran % (Auto) Neut % (Auto) Lymph % (Auto) Duval % (Auto) Eos % (Auto) Baso % (Auto) Absolute Neuts (auto) Absolute Lymphs (auto) Absolute Nucleated RBC Nucleated RBC % PT INR APTT Sodium 140 Potassium 4.3 Chloride 107 Carbon Dioxide 20.0 L Anion Gap 13 BUN 29 H Creatinine 1.22 Estim Creat Clear Calc 42.27 Est GFR (MDRD) Af Amer 75 Est GFR (MDRD) Non-Af 62 BUN/Creatinine Ratio 23.8 H Glucose 266 H Hemoglobin A1c Calcium 8.8 Total Bilirubin 0.40 AST 89 H ALT 64 H Alkaline Phosphatase 78 Troponin I Total Protein 6.7 Albumin 3.1 L Globulin 3.6 Albumin/Globulin Ratio 0.9 Triglycerides 200 H Cholesterol 102 LDL Cholesterol 37 VLDL Cholesterol 40 HDL Cholesterol 25 L Urine Color Yellow Urine Clarity Clear Urine pH 5.0 Ur Specific [place] 1.010 Urine Protein 30 H Urine Glucose (UA) 250 H Urine Ketones 5 H Urine Occult Blood Negative Urine Nitrite Negative Urine Bilirubin Negative Urine Urobilinogen Normal Ur Leukocyte Esterase 25 H Urine RBC 0 SEEN Urine WBC 0 SEEN Ur Squamous Epith Cells 0 SEEN Urine Bacteria 0 SEEN Urine Mucus 0 SEEN Medical Necessity - Tobacco Use Smoking Status: Never smoker Assessment/Plan All Active Problems (Last Reviewed 05/27/19 @ 04:04 by Sundeep Matson MD) TIA (transient ischemic attack) (Acute) Renal insufficiency (Acute) Stroke-like symptoms (Acute) 1. Rule out CVA-patient noted to have slurred speech prior to admission and wobbly gait. CTA of head and neck shows no acute abnormality. MRI of brain, MRA of head and neck ordered. Continue aspirin, statin. Patient had recent echocardiogram March 2018 which showed an EF of 65%, stage I diastolic dysfunction, RVSP estimated to be 40 mmHg. Will not repeat echo at this time. Feel this is most likely secondary to dehydration, Flexeril and heat exhaustion. PT/OT/ST. NIHHS. 2. Acute kidney injury-resolved with IV fluids. Trend BMP. 3. New diagnosis type 2 diabetes mellitus-hemoglobin A1c 8.4%. Accu-Cheks ACHS with SSI. Nutrition consult. Will need initiated on oral regimen at discharge. 4. Hypertension-home losartan and Lasix regimen held on admission given GASTON and hypotension. Patient has outpatient stress test scheduled in the near future by Dr. Solo. At this time, no indication to complete this during admission. 5. Hyperlipidemia-continue statin regimen. 6. WPW- follows with Dr. Solo. Avoid beta-blockers, calcium channel blockers, digoxin. 7. Suspected LOIS-patient has upcoming sleep study. 8. Chronic back pain, following with pain management-patient has upcoming injection with Dr. Coughlin Tuesday. Continue home PRN pain regimen. 9. Obesity-encouraged diet lifestyle modifications. Nutrition consult. DVT prophylaxis-SCDs, Lovenox. This patient was seen by SUKHWINDER Jones under the supervision of Dr. Cordon. <Conrad Cordon F - Last Filed: 05/27/19 13:16> - Physical Exam Vital Signs Temp Pulse Resp BP Pulse Ox 97.7 F L 85 16 194/85 H 98 05/27/19 10:30 05/27/19 10:30 05/27/19 10:30 05/27/19 10:30 05/27/19 10:30 Oxygen Flow Rate (L/min) 2 Oxygen Delivery Method Room Air Weight: 236 lb 15.951 oz Body Mass Index (BMI) 42.9 Finger Stick Blood Glucose 283 Intake and Output for Last 24 Hours 05/25/19 05/26/19 05/27/19 23:59 23:59 23:59 Intake Total 697 / 697 Balance 697 / 697 Laboratory Tests Past 24 Hrs 05/27/19 05/27/19 05/27/19 01:04 01:04 01:04 WBC 7.7 RBC 3.29 L Hgb 10.9 L Hct 31.8 L MCV 96.7 H MCH 33.1 H MCHC 34.3 RDW Std Deviation 46.5 H RDW Coeff of Nora 13.1 Plt Count 118 L MPV 9.0 Immature Gran % (Auto) 0.500 Neut % (Auto) 70.2 H Lymph % (Auto) 18.4 L Duval % (Auto) 7.9 Eos % (Auto) 2.5 Baso % (Auto) 0.5 Absolute Neuts (auto) 5.4 Absolute Lymphs (auto) 1.42 Absolute Nucleated RBC 0.00 Nucleated RBC % 0 PT 15.3 H INR 1.2 APTT 32.0 Sodium 138 Potassium 3.9 Chloride 108 H Carbon Dioxide 24.0 Anion Gap 6 BUN 26 H Creatinine 1.40 H Estim Creat Clear Calc 55.45 Est GFR (MDRD) Af Amer 64 Est GFR (MDRD) Non-Af 53 L BUN/Creatinine Ratio 18.6 Glucose 329 H Hemoglobin A1c Calcium 8.7 Total Bilirubin AST ALT Alkaline Phosphatase Troponin I < 0.015 Total Protein Albumin Globulin Albumin/Globulin Ratio Triglycerides Cholesterol LDL Cholesterol VLDL Cholesterol HDL Cholesterol Urine Color Urine Clarity Urine pH Ur Specific [place] Urine Protein Urine Glucose (UA) Urine Ketones Urine Occult Blood Urine Nitrite Urine Bilirubin Urine Urobilinogen Ur Leukocyte Esterase Urine RBC Urine WBC Ur Squamous Epith Cells Urine Bacteria Urine Mucus 05/27/19 05/27/19 05/27/19 03:21 03:21 06:33 WBC RBC Hgb Hct MCV MCH MCHC RDW Std Deviation RDW Coeff of Nora Plt Count MPV Immature Gran % (Auto) Neut % (Auto) Lymph % (Auto) Duval % (Auto) Eos % (Auto) Baso % (Auto) Absolute Neuts (auto) Absolute Lymphs (auto) Absolute Nucleated RBC Nucleated RBC % PT INR APTT Sodium Potassium Chloride Carbon Dioxide Anion Gap BUN Creatinine Estim Creat Clear Calc Est GFR (MDRD) Af Amer Est GFR (MDRD) Non-Af BUN/Creatinine Ratio Glucose Hemoglobin A1c 8.4 H Calcium Total Bilirubin AST ALT Alkaline Phosphatase Troponin I < 0.015 Total Protein Albumin Globulin Albumin/Globulin Ratio Triglycerides Cancelled Cholesterol Cancelled LDL Cholesterol Cancelled VLDL Cholesterol Cancelled HDL Cholesterol Cancelled Urine Color Urine Clarity Urine pH Ur Specific [place] Urine Protein Urine Glucose (UA) Urine Ketones Urine Occult Blood Urine Nitrite Urine Bilirubin Urine Urobilinogen Ur Leukocyte Esterase Urine RBC Urine WBC Ur Squamous Epith Cells Urine Bacteria Urine Mucus 05/27/19 05/27/19 06:48 06:55 WBC RBC Hgb Hct MCV MCH MCHC RDW Std Deviation RDW Coeff of Nora Plt Count MPV Immature Gran % (Auto) Neut % (Auto) Lymph % (Auto) Du[place] % (Auto) Eos % (Auto) Baso % (Auto) Absolute Neuts (auto) Absolute Lymphs (auto) Absolute Nucleated RBC Nucleated RBC % PT INR APTT Sodium 140 Potassium 4.3 Chloride 107 Carbon Dioxide 20.0 L Anion Gap 13 BUN 29 H Creatinine 1.22 Estim Creat Clear Calc 42.27 Est GFR (MDRD) Af Amer 75 Est GFR (MDRD) Non-Af 62 BUN/Creatinine Ratio 23.8 H Glucose 266 H Hemoglobin A1c Calcium 8.8 Total Bilirubin 0.40 AST 89 H ALT 64 H Alkaline Phosphatase 78 Troponin I Total Protein 6.7 Albumin 3.1 L Globulin 3.6 Albumin/Globulin Ratio 0.9 Triglycerides 200 H Cholesterol 102 LDL Cholesterol 37 VLDL Cholesterol 40 HDL Cholesterol 25 L Urine Color Yellow Urine Clarity Clear Urine pH 5.0 Ur Specific [place] 1.010 Urine Protein 30 H Urine Glucose (UA) 250 H Urine Ketones 5 H Urine Occult Blood Negative Urine Nitrite Negative Urine Bilirubin Negative Urine Urobilinogen Normal Ur Leukocyte Esterase 25 H Urine RBC 0 SEEN Urine WBC 0 SEEN Ur Squamous Epith Cells 0 SEEN Urine Bacteria 0 SEEN Urine Mucus 0 SEEN POC Glucose 05/27/19 05/27/19 11:44 06:40 POC Glucose 178 H 259 H Code Visit Addendum: Dr. Cordon I personally examined the patient and reviewed the chart. I agree with the above. 74-year-old male came in with slurred speech and a notable elevated blood sugar. He states that the house was warm and he does not have any air conditioning and there is a component of heat exhaustion as well as dehydration to his symptoms. [facility] tele-stroke was consulted and he had significant improvement in his symptoms and therefore TPA was not indicated. All symptoms have resolved now however he will be ruled out for stroke with an MRI on Tuesday as well as a repeat echo. CTA of the head and neck was normal. OBSV E&M: [id number] Subsequent observation care L2
[2019-05-27 11:26] LABS: Bedside Glucose 259 mg/dL (70-110)
[2019-05-27] MEDS: Aspirin E.C. 81 MG Tablet PO (11:49)
[2019-05-27 12:20] LABS: Bedside Glucose 178 mg/dL (70-110)
[2019-05-27 16:46] LABS: Bedside Glucose 185 mg/dL (70-110)
[2019-05-27] MEDS: Atorvastatin Calcium 10 MG Tablet PO (21:24)
[2019-05-27 22:25] LABS: Bedside Glucose 197 mg/dL (70-110)
[2019-05-28] VITALS (8 sets, daily range): BP systolic 166–179; BP diastolic 74–90; PULSE 82–111; RESP 16–18; TEMP 36.7–37; O2SAT 94–96; BMI 42.9
[2019-05-28] MEDS: Enoxaparin 40 MG/0.4 ML Syringe SC (05:39)
[2019-05-28] MEDS: Insulin Lispro 100 UNIT/ML INSULN.PEN SC ×3 (06:55→16:15)
[2019-05-28] MEDS: Aspirin E.C. 81 MG Tablet PO (07:45)
[2019-05-28] MEDS: oxyCODONE 5 MG Tablet PO ×2 (07:45→15:22)
--- NOTE | 2019-05-28 08:48 | MRI_ITS ---
STUDY: MRI BRAIN WITHOUT CONTRAST REASON FOR EXAM: Male, 74 years old. cva, slurred speech,weakness,fatigue, diaphoretic. TECHNIQUE: Standardized multiplanar fat and water weighted pulse sequences were obtained. COMPARISON: 05/27/2019 CT of the head FINDINGS: There is mild cerebral atrophy with widening of the extra-axial spaces and ventricular dilatation. There are a limited number of small white matter hyperintensities, distributed throughout the deep white matter tracts of the cerebral hemispheres, consistent with minimal chronic white matter ischemic changes. Normal bilateral basal ganglia. Normal thalami. There is no extra-axial fluid accumulation. Normal flow voids within the major intracranial circulation suggesting patency by spin echo criteria. Normal sella turcica, pituitary gland, infundibular stalk, optic chiasm and hypothalamus. Normal tectal plate and pineal gland. Normal midbrain, rolan and medulla. Normal cerebellum. There is moderate sphenoid sinus disease. MRI/Brain without Contrast IMPRESSION: No acute intracranial abnormality. Moderate sphenoid sinus disease. Electronically Signed: Rishi Brdiges MD at 12:17 EDT Tel , Service support ,
--- NOTE | 2019-05-28 10:07 | ECHOD_ITS ---
Reason For Study: syncope/near syncope Procedure This was a 2D Doppler, Color Flow transthoracic echocardiogram. Exam performed portable in patient room. Left Ventricle Normal size and thickness. The estimated ejection fraction is 75 %. Stage 1 diastolic dysfunction. No regional wall motion abnormalities noted. Right Ventricle Normal size and thickness. Normal systolic function. Atria Normal left atrium. Normal right atrium. Normal atrial septum. Mitral Valve The mitral valve is structurally normal. No prolapse or stenosis seen. Trivial mitral valve insufficiency. Tricuspid Valve Normal tricuspid valve. Trivial tricuspid valve insufficiency. Right ventricular systolic pressure estimated to be 34 mmHg. Aortic Valve Trisinus/trileaflet aortic valve. Normal aortic valve. Trivial aortic valve insufficiency. Pulmonic Valve Normal pulmonic valve. Great Vessels Normal aortic root. Normal arch. Normal inferior vena cava. Inferior vena cava collapse with sniff. Pericardium/Pleural No pericardial effusion. MMode/2D Measurements & Calculations LVIDd: 4.6 cm IVSd: 1.1 cm Ao root diam: 3.2 cm LVIDs: 2.6 cm LVPWd: 1.2 cm RVDd: 3.3 cm FS: 43.0 % LAV(MOD-bp): 55.8 ml LA A4 area: 19.0 cm2 LA dimension(2D): 4.2 cm LAV(MOD-bp) Indexed: 24.5 ml/m2 LAV(MOD-sp2): 56.4 ml LAV(MOD-sp4): 54.3 ml RA A4 area: 14.1 cm2 Time Measurements MV dec time: 0.17 sec Doppler Measurements & Calculations MV E max fermin: 75.6 cm/sec Lat Peak E' Fermin: 7.4 cm/sec Med Peak E' Fermin: 7.7 cm/sec MV A max fermin: 106.7 cm/sec E/E' lat: 10.2 E/E' med: 9.9 MV E/A: 0.71 Ao V2 max: 138.1 cm/sec AI max fermin: 421.5 cm/sec LV V1 max: 143.3 cm/sec Ao max P.6 mmHg AI max P.1 mmHg LV V1 max P.2 mmHg Ao V2 mean: 122.7 cm/sec AI dec slope: 263.6 cm/sec2 LV V1 mean P.2 mmHg Ao mean P.5 mmHg AI P1/2t: 468.3 msec LV V1 mean: 97.6 cm/sec Ao V2 VTI: 31.7 cm LV V1 VTI: 29.6 cm PA V2 max: 85.3 cm/sec TR max fermin: 268.3 cm/sec TR max P.8 mmHg Interpretation Summary The estimated ejection fraction is 75 %. Stage 1 diastolic dysfunction. Trivial mitral valve insufficiency. Trivial tricuspid valve insufficiency. Right ventricular systolic pressure estimated to be 34 mmHg. Trivial aortic valve insufficiency. Compared to echo report dated 03/23/2018, no appreciable changes noted. Ordering Physician: Lisa Campbell Referring Physician: Mariposa Dickerson Performed By: Leyda Mascorro RDCS, RVT
[2019-05-28 11:11] LABS: Bedside Glucose 194 mg/dL (70-110)
[2019-05-28 11:25] LABS: Bedside Glucose 179 mg/dL (70-110)
[2019-05-28] MEDS: 0.9% Normal Saline 1,000 ML 100 ML IV (11:30)
--- NOTE | 2019-05-28 12:34 | PCM.DC ---
- Discharge Diagnoses Current Active Problems: Current Active and Chronic Problems (Last Reviewed 05/27/19 @ 04:04 by Sundeep Matson MD) Renal insufficiency (Acute) Stroke-like symptoms (Acute) You will use the following diet at home:: Calorie/Carbohydrate Controlled (specify 1200, 1400, etc) Discharge Activity: Return to Normal Activity Call your doctor if you observe: Shortness of breath, Dizziness, Fainting spells, Chest pain Allergies/Adverse Reactions: Allergies BETA BLOCKERS Adverse Reaction (Severe, Uncoded 05/27/19 00:58) ROJELIO VILLEGAS:CANNOT TAKE CALCIUM CHANNEL BLOCKERS Adverse Reaction (Severe, Uncoded 05/27/19 00:58) ROJELIO VILLEGAS: CANNOT TAKE DIGOXIN Adverse Reaction (Severe, Uncoded 05/27/19 00:58) ROJELIO VILLEGAS: CANNOT TAKE Medications to take at Discharge calcium carb-ergocalciferol (vit D2) 600 mg calcium-200 unit tablet 1 tab PO DAILY 01/20/18 acetaminophen 500 mg tablet 1,000 mg PO QHS tab 02/03/18 aspirin 81 mg tablet,delayed release 81 mg PO QDAY tab 02/03/18 bisacodyl 5 mg tablet,delayed release 5 mg PO QDAY PRN tab 02/03/18 diphenhydramine 25 mg tablet 50 mg PO QHS PRN tab 02/03/18 docusate sodium 100 mg capsule 100 mg PO BID PRN 02/03/18 morphine ER 30 mg-naltrexone 1.2 mg capsule, extend release, oral only 1 cap PO QDAY 02/03/18 multivitamin tablet 1 tab PO QDAY 02/03/18 oxycodone-acetaminophen 5 mg-325 mg tablet 1 tab PO TID PRN tab 02/03/18 tizanidine 4 mg capsule 4 mg PO QHS PRN cap 10/16/18 potassium chloride ER 10 mEq capsule,extended release 10 meq PO QDAY #30 cap 02/07/19 simvastatin 20 mg tablet 20 mg PO QPM #90 tab 04/27/19 furosemide 40 mg tablet 40 mg PO DAILY #90 tab 05/14/19 losartan 50 mg tablet 50 mg PO BID #180 tab 05/14/19 metFORMIN (XR) [Glucophage Xr] 500 mg PO DAILY #30 tab 05/28/19 The following prescriptions were given: metFORMIN (XR) [Glucophage Xr] 500 mg PO DAILY #30 tab Transmission Status: Pending to [facility] Primary Care Physician: Mariposa Dickerson MD [Primary Care Provider] - Please follow up with your Primary Care Physician in: 1 Week Test Results: Test results from this visit will be discussed in further detail at your follow-up appointment, if applicable. Proposed Discharge Date: 05/28/19
--- NOTE | 2019-05-28 12:38 | DS.PCM_ITS ---
<Lisa Campbell - Last Filed: 05/28/19 12:44> Discharge Date and Diagnosis Date of Admission: 05/27/19 Date of Discharge: 05/28/19 - Primary Discharge Diagnosis Active and Suspected Problems (Last Reviewed 05/27/19 @ 04:04 by Sundeep Matson MD) 1. Slurred speech, CVA ruled out 2. Acute kidney injury, resolved 3. New diagnosis type 2 diabetes mellitus 4. Hypertension 5. Hyperlipidemia 6. WPW 7. Suspected LOIS 8. Chronic back pain, following with pain management 9. Obesity - Secondary Discharge Diagnosis Chronic Problems (Last Reviewed 05/27/19 @ 04:04 by Sundeep Matson MD) Chronic low back pain (Chronic) Paroxysmal atrial fibrillation (Chronic) Omorz-Tizfzfpqt-Gupte (WPW) syndrome (Chronic) Hyperlipidemia (Chronic) Hypertension (Chronic) Hospital Course and Treatment Imaging Results: Diagnostic Data Head/Neck CTA 05/27/19 01:06 IMPRESSION: Unremarkable CT angiogram of the neck. Individualized dose optimization techniques were used for this CT. at 0133 Reported and signed by: Nanette Saleh MD Electronically Signed: Nanette Saleh MD at 1:33 EDT Tel , Service support , ADDENDUM: 05/27/19 0144 IMPRESSION: Unremarkable CT angiogram of the neck. Individualized dose optimization techniques were used for this CT. at 0133 Reported and signed by: Nanette Saleh MD N.B. : The above information has been verbally conveyed by Nanette Saleh MD to Jered Amaro MD, on 05/27/2019 01:37:44 (ET). Electronically Signed: Nanette Saleh MD at 1:33 EDT Tel , Service support , Brain MRI 05/28/19 08:48 IMPRESSION: No acute intracranial abnormality. Moderate sphenoid sinus disease. Electronically Signed: Rishi Bridges MD at 12:17 EDT Tel , Service support , Operations: None Procedures: 2-D Echocardiogram Summary of Care Provided: The patient is a 74 year old M admitted 05/27/2018 due to slurred speech and unsteady gait. 1. Slurred speech, CVA ruled out-patient noted to have slurred speech prior to admission and wobbly gait. CTA of head and neck shows no acute abnormality. MRI of brain, MRA of head and neck ordered. Patient on aspirin, statin prior to admission. Patient had echocardiogram March 2018 which showed an EF of 65%, stage I diastolic dysfunction, RVSP estimated to be 40 mmHg. Feel admitting symptoms are secondary to dehydration, Flexeril and heat exhaustion. MRI of brain without acute process. Repeat echocardiogram pending and will be reviewed prior to discharge. Follow-up with primary care provider in 1 week. 2. Acute kidney injury-resolved with IV fluids. 3. New diagnosis type 2 diabetes mellitus-hemoglobin A1c 8.4%. Initiated on metformin 500 mg daily which can be titrated as outpatient pending repeat HA1C. 4. Hypertension-continue home losartan, Lasix regimen. Patient has outpatient stress test scheduled in the near future by Dr. Solo. At this time, no indication to complete this during admission. 5. Hyperlipidemia-continue statin regimen. 6. WPW- follows with Dr. Solo. Avoid beta-blockers, calcium channel blockers, digoxin. 7. Suspected LOIS-patient has upcoming sleep study. 8. Chronic back pain, following with pain management-patient has upcoming injection with Dr. Madyson Linton. 9. Obesity-encouraged diet lifestyle modifications. General: Alert, Oriented x3, Cooperative HEENT: Atraumatic, PERRLA, EOMI, Normocephalic Neck: Supple, No JVD, Negative Carotid Bruits Lungs: Clear to auscultation, Normal air movement Cardiovascular: Regular rate, Regular Rhythm, Normal S1, Normal S2, No murmurs Abdomen: Bowel Sounds Present, Soft, Non Tender, Non-Distended Extremities: No clubbing, No cyanosis, No edema, Capillary Refill Less than 3 Seconds Skin: No rashes, No breakdown Musculoskeletal: No Tenderness to Palpation of Joints or Extremities Neurological: Cranial nerves II-XII grossly intact, Neuro grossly intact Psych/Mental Status: Normal Affect, Appropriate Patient seen and examined prior to discharge. Physical assessment as noted above. Patient is stable for discharge with follow up recommendations as noted above. This patient was seen by SUKHWINDER Jones under the supervision of Dr. Tripathi. - Physical Exam Vital Signs Temp Pulse Resp BP Pulse Ox 98.2 F 93 17 179/86 H 96 05/28/19 09:15 05/28/19 09:15 05/28/19 09:15 05/28/19 09:15 05/28/19 09:15 Oxygen Flow Rate (L/min) 2 Oxygen Delivery Method Room Air Weight: 235 lb 14.314 oz Body Mass Index (BMI) 42.9 Finger Stick Blood Glucose 283 Intake and Output for Last 24 Hours 05/26/19 05/27/19 05/28/19 23:59 23:59 23:59 Intake Total 2053 400 / 400 Balance 2053 400 / 400 POC Glucose 05/28/19 05/28/19 05/27/19 11:02 06:52 21:16 POC Glucose 194 H 179 H 197 H 05/27/19 16:30 POC Glucose 185 H Discharge Diet: Carb Control Diet Discharge Activity: Return to Normal Activity Call your doctor if you observe: Shortness of breath, Dizziness, Fainting spells, Chest pain Home Medications: Medications to take at Discharge calcium carb-ergocalciferol (vit D2) 600 mg calcium-200 unit tablet 1 tab PO DAILY 01/20/18 acetaminophen 500 mg tablet 1,000 mg PO QHS tab 02/03/18 aspirin 81 mg tablet,delayed release 81 mg PO QDAY tab 02/03/18 bisacodyl 5 mg tablet,delayed release 5 mg PO QDAY PRN tab 02/03/18 diphenhydramine 25 mg tablet 50 mg PO QHS PRN tab 02/03/18 docusate sodium 100 mg capsule 100 mg PO BID PRN 02/03/18 morphine ER 30 mg-naltrexone 1.2 mg capsule, extend release, oral only 1 cap PO QDAY 02/03/18 multivitamin tablet 1 tab PO QDAY 02/03/18 oxycodone-acetaminophen 5 mg-325 mg tablet 1 tab PO TID PRN tab 02/03/18 tizanidine 4 mg capsule 4 mg PO QHS PRN cap 10/16/18 potassium chloride ER 10 mEq capsule,extended release 10 meq PO QDAY #30 cap 0 02/07/19 simvastatin 20 mg tablet 20 mg PO QPM #90 tab 04/27/19 furosemide 40 mg tablet 40 mg PO DAILY #90 tab 05/14/19 losartan 50 mg tablet 50 mg PO BID #180 tab 05/14/19 metFORMIN (XR) [Glucophage Xr] 500 mg PO DAILY #30 tab 05/28/19 Following Prescrptions Were Given to Patient: metFORMIN (XR) [Glucophage Xr] 500 mg PO DAILY #30 tab Transmission Status: Received by [facility] Primary Care Physician: Mariposa Dickerson MD [Primary Care Provider] - Please follow up with your Primary Care Physician in: 1 Week Disposition: Home Minutes spent on discharge:: 35 Patient Condition:: Stable Medical Necessity - Tobacco Use Smoking Status: Former smoker Tobacco Use: Pipe Meaningful Use Info Meaningful Use Diagnoses (Choose all that apply): None applicable <[place] - Last Filed: 05/28/19 14:43> Discharge Date and Diagnosis - Secondary Discharge Diagnosis Chronic Problems (Last Reviewed 05/27/19 @ 04:04 by Sundeep Matson MD) Chronic low back pain (Chronic) Paroxysmal atrial fibrillation (Chronic) Maqaj-Dbfaeomui-Czang (WPW) syndrome (Chronic) Hyperlipidemia (Chronic) Hypertension (Chronic) Hospital Course and Treatment Imaging Results: 05/28/19 08:48 Brain without Contrast [MRI] Routine 05/28/19 10:07 Echo Complete [ECHO] Routine Summary of Care Provided: This patient was seen in conjunction with Lisa Campbell NP. I have independently interviewed and examined the patient and reviewed pertinent historical, laboratory, and other data. Please refer to her note for patient's presentation, findings, and recommendations. 74-year-old male with past medical history hyperlipidemia, WPW, chronic back pain who comes in with slurred speech and unsteady gait. Patient had an initial CTA of the head and neck that showed no acute abnormality. MRI of the brain, MRA of head and neck was ordered which was unremarkable. The echo showed normal EF, stage I diastolic dysfunction. He was admitted with tightening of 1.40, and jumped from previous creatinine of 0.88, that improved to 1.22 at discharge. He was found also to be a newly diagnosed diabetic with HbA1c 8.4. He was discharged on metformin. Patient's vitals remained stable during the hospital stay. On the day of discharge he was seen and examined, he denied any new complaints. He complains only of feeling fatigued. Physical Exam: Gen: Morbidly obese, not pale, not jaundiced, alert oriented x3 CVS:HS I +II, regular, no murmurs RESP: Clinically clear to auscultation GI: BS present and normal, nontender, no palpable organs EXT:No edema ASSESSMENT: 1. Dysarthria, CVA ruled out 2. GASTON, improved with IV fluids 3. Hypertension 4. Hyperlipidemia 5. WPW, follows Dr. Solo 6. Suspected LOIS, due for sleep study 7. Chronic back pain 8. Obesity - Physical Exam Vital Signs Temp Pulse Resp BP Pulse Ox 98.2 F 93 17 179/86 H 96 05/28/19 09:15 05/28/19 09:15 05/28/19 09:15 05/28/19 09:15 05/28/19 09:15 Oxygen Flow Rate (L/min) 2 Oxygen Delivery Method Room Air Weight: 107 kg Body Mass Index (BMI) 42.9 Finger Stick Blood Glucose 283 Intake and Output for Last 24 Hours 05/26/19 05/27/19 05/28/19 23:59 23:59 23:59 Intake Total 2053 400 / 400 Balance 2053 400 / 400 POC Glucose 05/28/19 05/28/19 05/27/19 11:02 06:52 21:16 POC Glucose 194 H 179 H 197 H 05/27/19 16:30 POC Glucose 185 H Code Visit Inpatient E&M: 28270 Disch Hosp
--- NOTE | 2019-05-28 13:24 | CASEMGMT ---
Per therapy notes, they are recommending home PT for pt at this time. This RN CM to room to discuss with pt/ and they both decline HHC and OP therapy at this time but is interested in therapy giving them some exercises that pt could work on at home. states that she knows pt is 'too sedentary' and that he needs to be walking more. This RN CM notified Frances from therapy at this time and she states she will have Emily come speak with pt/ regarding same at this time. Pt/ voice no further questions/concerns/needs at this time. SStaten RN CM
[2019-05-28] MEDS: Furosemide 40 MG Tablet PO (13:37)
[2019-05-28] MEDS: Losartan Potassium 50 MG Tablet PO (13:37)
--- NOTE | 2019-05-28 14:07 | CASEMGMT ---
SW did not complete a PHQ9 with patient as per physician he did not have a Stroke or TIA. Barbra ESPINO MSW
--- NOTE | 2019-05-28 15:59 | CASEMGMT ---
Pt is diagnosed with new onset DM type II at this time. Per [facility], pt's insurance requires glucometer and testing supplies to be ordered through [employer] supplies. Call to S and per Lakesha, pt can get thru [employer] medical paid at 100% and deduct waived or pt can get thru [facility] retail pharm paid at 90% after deduct met. Per Lakesha, pt still has $1543 of deduct to meet. Per pt/, they would like to go through [facility] at this time. Call to [employer] and per Olinda, she can complete over the phone and it will start to be processed immediately or it can be faxed and it will take 24-48hrs for it to even start to be processed. Pt/ would like this CLAIRE ROCA to complete over the phone at this time. Information provided and order confirmed at this time. Per Olinda, it will still take 5-7days for supplies to arrive and she will call pt/ with any more questions/concerns. She states a script will be faxed for Georgie GREEN to sign and faxed back. Pt's family is going to get a glucometer at [facility] at this time to get pt thru until receives his supplies thru [employer] and they will then have the [facility] glucometer as back up for the future. Pt/ updated on all at this time, voice understanding. provided with glucometer/testing supply script at this time. Pt/ voice no further questions/concerns/needs at this time. SStaten CLAIRE ROCA
[2019-05-28 16:20] LABS: Bedside Glucose 177 mg/dL (70-110)
== END 2019-05-28 17:56 | disposition home or self-care (01) ==
LOC: ED 01:58 → PCU 02:07
PROVIDERS: Family Medicine; Admitting Provider Hospitalist; Emergency Provider Emergency Medicine; Family Provider Internal Medicine; PCP Internal Medicine; Visit Provider Internal Medicine
DX: N17.9 Acute kidney failure, unspecified (principal); R47.81 Slurred speech; I10 Essential (primary) hypertension; E78.5 Hyperlipidemia, unspecified; I45.6 Pre-excitation syndrome; E11.65 Type 2 diabetes mellitus with hyperglycemia; I95.9 Hypotension, unspecified; R47.1 Dysarthria and anarthria; G89.29 Other chronic pain; R42 Dizziness and giddiness; I48.0 Paroxysmal atrial fibrillation; R29.702 NIHSS score 2; M54.9 Dorsalgia, unspecified; Z68.41 Body mass index [BMI] 40.0-44.9, adult; Z71.3 Dietary counseling and surveillance; Z79.899 Other long term (current) drug therapy; Z79.82 Long term (current) use of aspirin
CPT/HCPCS: 36415; 70496; 70498; 70551; 80048; 80053; 80061; 81001; 82962; 83036; 84484; 85025; 85610; 85730; 92610; 93005; 93306; 94762; 96360; 96361; 96372; 97162; 97165; 97530; 97802; 99218; 99285; J7030; J7040; Q9967; A4216; G0378

== ENCOUNTER → 2019-05-31 | Outpatient (CLI) | payer OTHER, MEDICARE, SELFPAY ==
[2019-05-28 17:47] VITALS: BMI 42.9
--- NOTE | 2019-05-31 08:15 | RAD_ITS ---
STUDY: X-RAY - LEFT HAND, ATTENTION THUMB REASON FOR EXAM: History of fusion, pain, fell last winter. TECHNIQUE: 3 view(s) of the finger were obtained. COMPARISON: None. FINDINGS: Normal metacarpal. Normal metacarpophalangeal joint. Normal proximal phalanx. Normal distal phalanx. There is fusion of the interphalangeal joint. RAD/Finger(s) Min 2 Views IMPRESSION: Fusion of the interphalangeal joint. Electronically Signed: Leland Saucedo MD at 8:45 EDT Tel , Service support ,
== END | disposition home or self-care (01) ==
LOC: HPRAD 08:11
PROVIDERS: Family Provider Internal Medicine; PCP Internal Medicine; Referring Provider Orthopaedic Surgery; Visit Provider Orthopaedic Surgery
DX: S63.602A Unspecified sprain of left thumb, initial encounter (principal)
CPT/HCPCS: 73140

== ENCOUNTER → 2019-06-12 | Outpatient (CLI) | payer OTHER, MEDICARE, SELFPAY ==
[2019-05-14 13:18] VITALS: BMI 30.5
[2019-05-31 08:15] VITALS: BMI 42.9
--- NOTE | 2019-06-12 10:57 | STRESSREP ---
Stress Test Report Date: 06-12-19 Procedure: Pharmacologic stress nuclear imaging study Indications: Shortness of breath/dyspnea on exertion: Paroxysmal atrial fibrillation Consent: Per the patient Procedure: The patient underwent pharmacologic (Regadenoson) evaluation with a peak heart rate of 121 beats per minute (81 %predicted maximal heart rate) and a peak blood pressure of 160/80 mmHg. The baseline ECG demonstrated normal sinus rhythm. The peak pharmacologic ECG demonstrated no obvious ECG changes. There were no cardiac dysrhythmias pretest, during pharmacologic infusion, or recovery. The patient noted chest pressure and flushing in recovery with subsequent spontaneous resolution. The examination was discontinued secondary to completion of protocol. Impression: 1. Pharmacologic (Regadenoson) evaluation 2. Peak pharmacologic ECG with no obvious ECG changes. 3. There were no cardiac dysrhythmias pretest, during pharmacologic infusion, or recovery. 4. Nuclear images pending Myocardial perfusion imaging study: Technique: The patient was injected with 15.0 millicuries of technetium 99m Cardiolite and subsequently rest SPECT Cardiolite nuclear imaging was obtained in the horizontal long, vertical long, and short axis views. The patient underwent pharmacologic (Regadenoson) evaluation with a peak heart rate of 121 beats per minute (81 % percent predicted maximal heart rate) and a peak blood pressure of 160/80 mmHg. The patient was injected with 45.0 millicuries of technetium 99m Cardiolite and subsequently stress SPECT Cardiolite nuclear imaging was obtained in the horizontal long, vertical long, and short axis views. A gated Cardiolite study at peak stress was obtained. Interpretation: Rest and stress SPECT Cardiolite nuclear imaging status post realignment, normalization, and attenuation correction demonstrate relative uniform tracer uptake and myocardial perfusion appearing within normal limits. There is end systolic thickening and brightening. The gated Cardiolite study demonstrates myocardial thickening and inward wall motion. The reported LVEF is 81 %. Impression: 1. Rest and stress SPECT Cardiolite nuclear imaging demonstrate relative uniform tracer uptake and myocardial perfusion appearing within normal limits. 2. The gated Cardiolite study reports an LVEF of 81 %. This note was generated with [employer] software. It may contain incorrect words, spelling, and punctuation that were not noted in checking the note before signing.
== END | disposition home or self-care (01) ==
LOC: CVS 06:36
PROVIDERS: Family Provider Internal Medicine; PCP Internal Medicine; Referring Provider Internal Medicine Cardiovascular Disease; Visit Provider Internal Medicine Cardiovascular Disease
DX: R06.09 Other forms of dyspnea (principal); I45.6 Pre-excitation syndrome; I48.0 Paroxysmal atrial fibrillation; I10 Essential (primary) hypertension
CPT/HCPCS: 78452; 93017; A9500; A4216; J2785

== ENCOUNTER → 2019-06-18 | Outpatient (CLI) | payer OTHER, MEDICARE, SELFPAY ==
[2019-05-14 13:18] VITALS: BMI 30.5
== END | disposition home or self-care (01) ==
LOC: SL 20:03
PROVIDERS: Family Provider Internal Medicine; PCP Internal Medicine; Referring Provider Internal Medicine Cardiovascular Disease; Visit Provider Internal Medicine Cardiovascular Disease
DX: G47.10 Hypersomnia, unspecified (principal); I10 Essential (primary) hypertension; I45.6 Pre-excitation syndrome; I48.0 Paroxysmal atrial fibrillation
CPT/HCPCS: 95810

== ENCOUNTER → 2019-07-05 | Outpatient (CLI) | payer OTHER, MEDICARE, SELFPAY ==
[2019-07-02 08:06] VITALS: BMI 28.5
== END | disposition home or self-care (01) ==
LOC: SL 13:59
PROVIDERS: Family Provider Internal Medicine; PCP Internal Medicine; Visit Provider Nurse Practitioner Acute Care
DX: G47.33 Obstructive sleep apnea (adult) (pediatric) (principal)

== ENCOUNTER → 2019-07-25 09:14 | Outpatient (CLI) | payer OTHER, MEDICARE, SELFPAY ==
[2019-05-31 08:15] VITALS: BMI 42.9
[2019-07-02 08:06] VITALS: BMI 28.5
[2019-07-25 10:03] LABS: Hemoglobin A1c 6.1 % (4.2-6.3)
== END ==
PROVIDERS: Family Provider Internal Medicine; PCP Internal Medicine; Referring Provider Clinical Nurse Specialist; Visit Provider Clinical Nurse Specialist
DX: E11.65 Type 2 diabetes mellitus with hyperglycemia (principal)
CPT/HCPCS: 36415; 83036

== ENCOUNTER → 2019-08-06 09:56 | Outpatient (CLI) | payer OTHER, MEDICARE, SELFPAY ==
[2019-08-01 08:20] VITALS: BMI 28.5
[2019-08-06 11:11] LABS: Amphetamine Urine VISTA NEGATIVE (<1000 ng/mL); Barbiturate Urine VISTA NEGATIVE (< 200 ng/mL); Benzodiazepine Urine VISTA NEGATIVE (< 200 ng/mL); Cocaine Urine VISTA NEGATIVE (< 300 ng/mL); Ecstacy Urine VISTA NEGATIVE (< 500 ng/mL); Methadone Urine VISTA NEGATIVE (< 300 ng/mL); PCP Urine VISTA NEGATIVE (< 25 ng/mL); THC Urine VISTA NEGATIVE (< 50 ng/mL); Vista UDS pH Range 5
== END ==
PROVIDERS: Family Provider Internal Medicine; PCP Internal Medicine; Referring Provider Anesthesiology Pain Medicine; Visit Provider Anesthesiology Pain Medicine
DX: F11.20 Opioid dependence, uncomplicated (principal)
CPT/HCPCS: 80307

== ENCOUNTER → 2019-08-21 11:00 | Outpatient (CLI) | payer OTHER, MEDICARE, SELFPAY ==
[2019-08-01 08:20] VITALS: BMI 28.5
== END ==
PROVIDERS: Family Provider Internal Medicine; PCP Internal Medicine; Referring Provider Nurse Practitioner Acute Care; Visit Provider Nurse Practitioner Acute Care
DX: G47.30 Sleep apnea, unspecified (principal)
CPT/HCPCS: 98960; G0463

== ENCOUNTER → 2019-12-05 09:39 | Outpatient (CLI) | payer MEDICARE, OTHER, SELFPAY ==
[2019-09-19 10:10] VITALS: BMI 27.6
[2019-12-05 11:05] LABS: AST(SGOT) 22 U/L (15-37); Alanine Aminotransfer ALT/SGPT 48 U/L (16-61); Albumin, Serum 3.6 g/dL (3.2-5.0); Alkaline Phosphatase 87 U/L (45-117); Bilirubin, Direct 0.14 mg/dL (0.00-0.30); Cholesterol 107 mg/dL (200); Globulin 4.1 g/dL (2.2-4.2); High Density Lipoprotein 44 mg/dL; Protein, Total 7.7 g/dL (6.4-8.2); Triglycerides 74 mg/dL; Very Low Density Lipoprotein 15 mg/dL (5-40)
== END ==
PROVIDERS: PCP Internal Medicine; Referring Provider Nurse Practitioner Family; Visit Provider Nurse Practitioner Family
DX: E78.5 Hyperlipidemia, unspecified (principal)
CPT/HCPCS: 36415; 80061; 80076

== ENCOUNTER → 2020-03-12 16:16 | Outpatient (CLI) | payer MEDICARE, OTHER, SELFPAY ==
[2019-12-07 13:56] VITALS: BMI 27.5
[2020-03-12 17:20] LABS: AST(SGOT) 32 U/L (15-37); Alanine Aminotransfer ALT/SGPT 48 U/L (16-61); Albumin, Serum 3.6 g/dL (3.2-5.0); Alkaline Phosphatase 85 U/L (45-117); Bilirubin, Direct 0.13 mg/dL (0.00-0.30); Cholesterol 118 mg/dL (200); Globulin 4.1 g/dL (2.2-4.2); High Density Lipoprotein 34 mg/dL; Protein, Total 7.7 g/dL (6.4-8.2); Triglycerides 217 mg/dL; Very Low Density Lipoprotein 43 mg/dL (5-40)
== END ==
PROVIDERS: Internal Medicine Cardiovascular Disease; PCP Internal Medicine; Referring Provider Internal Medicine; Visit Provider Internal Medicine
DX: E78.00 Pure hypercholesterolemia, unspecified (principal); E78.5 Hyperlipidemia, unspecified
CPT/HCPCS: 36415; 80061; 80076

== ENCOUNTER → 2020-03-14 08:44 | Outpatient (CLI) | payer MEDICARE, OTHER, SELFPAY ==
[2019-12-07 13:56] VITALS: BMI 27.5
[2020-03-14 09:29] LABS: Hemoglobin A1c 5.9 % (4.2-6.3)
== END ==
PROVIDERS: PCP Internal Medicine; Referring Provider Internal Medicine; Visit Provider Internal Medicine
DX: E11.9 Type 2 diabetes mellitus without complications (principal)
CPT/HCPCS: 36415; 83036

== ENCOUNTER → 2020-05-13 10:31 | Outpatient (CLI) | payer MEDICARE, OTHER, SELFPAY ==
[2020-03-26 07:54] VITALS: BMI 27.0
[2020-05-13 11:09] LABS: Amphetamine Urine VISTA NEGATIVE (<1000 ng/mL); Barbiturate Urine VISTA NEGATIVE (< 200 ng/mL); Benzodiazepine Urine VISTA NEGATIVE (< 200 ng/mL); Cocaine Urine VISTA NEGATIVE (< 300 ng/mL); Ecstacy Urine VISTA NEGATIVE (< 500 ng/mL); Methadone Urine VISTA NEGATIVE (< 300 ng/mL); PCP Urine VISTA NEGATIVE (< 25 ng/mL); THC Urine VISTA NEGATIVE (< 50 ng/mL); Vista UDS pH Range 6
== END ==
PROVIDERS: PCP Internal Medicine; Referring Provider Anesthesiology Pain Medicine; Visit Provider Anesthesiology Pain Medicine
DX: F11.20 Opioid dependence, uncomplicated (principal)
CPT/HCPCS: 80307

== ENCOUNTER → 2020-07-02 12:50 | Outpatient (CLI) | payer MEDICARE, OTHER, SELFPAY ==
[2020-06-16 10:53] VITALS: BMI 25.9
--- NOTE | 2020-07-02 12:52 | ECHOD_ITS ---
Reason For Study: PHTN Procedure This was a 2D Doppler, Color Flow transthoracic echocardiogram. Contrast injection was performed. Exam performed in department. Left Ventricle Normal size and thickness. The estimated ejection fraction is 75 %. Stage 1 diastolic dysfunction. No regional wall motion abnormalities noted. Right Ventricle Normal size and thickness. Normal systolic function. Atria Normal left atrium. Normal right atrium. Normal atrial septum. Bubble contrast study negative for right to left interatrial shunt. Mitral Valve The mitral valve is structurally normal. No prolapse or stenosis seen. Trivial mitral valve insufficiency. Tricuspid Valve Normal tricuspid valve. Unable to estimate RV systolic pressure due to insufficient tricuspid regurgitant envelope. Aortic Valve Trisinus/trileaflet aortic valve. Trivial aortic valve insufficiency. Pulmonic Valve Normal pulmonic valve. Trivial pulmonic valve insufficiency. Great Vessels Normal aortic root. Normal arch. Normal inferior vena cava. Inferior vena cava collapse with sniff. Medication 22 gauge I.V. with prn adaptor inserted into right arm. Performed a rapid injection of agitated mix of 9 cc saline and 1cc air to assess for atrial septal defect. MMode/2D Measurements & Calculations LVIDd: 4.2 cm IVSd: 1.3 cm Ao root diam: 3.8 cm LVIDs: 2.1 cm LVPWd: 0.97 cm LA dimension: 3.5 cm FS: 49.5 % LAV(MOD-bp): 26.9 ml LA A4 area: 12.0 cm2 RA A4 area: 12.8 cm2 LAV(MOD-bp) Indexed: 13.5 ml/m2 LAV(MOD-sp2): 30.0 ml LAV(MOD-sp4): 24.3 ml Time Measurements MV dec time: 0.19 sec Doppler Measurements & Calculations MV E max fermin: 61.5 cm/sec Lat Peak E' Fermin: 5.1 cm/sec Med Peak E' Fermin: 4.8 cm/sec MV A max fermin: 93.3 cm/sec E/E' lat: 12.1 E/E' med: 12.9 MV E/A: 0.66 MV V2 max: 100.9 cm/sec MV P1/2t max fermin: 64.7 cm/sec Ao V2 max: 126.8 cm/sec MV max P.1 mmHg MV P1/2t: 65.1 msec Ao max P.4 mmHg MV V2 mean: 58.8 cm/sec MV dec slope: 291.2 cm/sec2 Ao V2 mean: 85.3 cm/sec MV mean P.6 mmHg MVA(P1/2t): 3.4 cm2 Ao mean P.3 mmHg MV V2 VTI: 16.9 cm Ao V2 VTI: 20.7 cm AI max fermin: 457.2 cm/sec LV V1 max: 119.7 cm/sec PA V2 max: 93.4 cm/sec AI max P.6 mmHg LV V1 max P.7 mmHg LV V1 mean P.3 mmHg AI dec slope: 283.1 cm/sec2 LV V1 mean: 69.8 cm/sec AI P1/2t: 473.0 msec LV V1 VTI: 20.4 cm PI end-d fermin: 130.0 cm/sec Interpretation Summary The estimated ejection fraction is 75 %. Stage 1 diastolic dysfunction. Trivial mitral valve insufficiency. Unable to estimate RV systolic pressure due to insufficient tricuspid regurgitant envelope. Trivial aortic valve insufficiency. Bubble contrast study negative for right to left interatrial shunt. Compared to echo report dated 05/28/2019, LV function has remained the same, unable to quantitate RVSP. Ordering Physician: Villa Solo Referring Physician: Mariposa Dickerson M.D. Performed By: Ochoa Mcneil RCS
== END ==
PROVIDERS: PCP Internal Medicine; Referring Provider Internal Medicine Cardiovascular Disease; Visit Provider Internal Medicine Cardiovascular Disease
DX: G47.33 Obstructive sleep apnea (adult) (pediatric) (principal)
CPT/HCPCS: 93306; A4216

== ENCOUNTER → 2020-09-30 07:25 | Outpatient (CLI) | payer MEDICARE, OTHER, SELFPAY ==
[2020-03-26 07:54] VITALS: BMI 27.0
[2020-09-24 14:35] VITALS: BMI 26.2
[2020-09-30 09:30] LABS: AST(SGOT) 23 U/L (15-37); Alanine Aminotransfer ALT/SGPT 39 U/L (16-61); Albumin, Serum 3.9 g/dL (3.2-5.0); Alkaline Phosphatase 77 U/L (45-117); Anion Gap 7 (5-15); BUN 46 mg/dL (7-18); BUN/Creat Ratio 35.7 RATIO (10-20); Calcium,Total 9.5 mg/dL (8.5-10.1); Chloride 106 mmol/L (98-107); Cholesterol 115 mg/dL (200); Creatinine, Serum 1.29 mg/dL (0.70-1.30); EST Glomerular Filtration Rate 58 mL/min (>60); Est Glom Filt Rate - Afr Amer 70 mL/min (>60); Globulin 3.8 g/dL (2.2-4.2); Glucose 104 mg/dL (74-106); High Density Lipoprotein 34 mg/dL; Potassium 3.9 mmol/L (3.5-5.1); Protein, Total 7.7 g/dL (6.4-8.2); Sodium Level 139 mmol/L (136-145); Triglycerides 141 mg/dL; Very Low Density Lipoprotein 28 mg/dL (5-40)
== END ==
PROVIDERS: PCP Internal Medicine; Referring Provider Internal Medicine; Visit Provider Internal Medicine
DX: E78.5 Hyperlipidemia, unspecified (principal); E11.9 Type 2 diabetes mellitus without complications; I10 Essential (primary) hypertension
CPT/HCPCS: 36415; 80053; 80061

== ENCOUNTER → 2020-10-14 20:20 | Outpatient (CLI) | payer MEDICARE, OTHER, SELFPAY ==
[2020-09-24 14:35] VITALS: BMI 26.2
== END ==
PROVIDERS: PCP Internal Medicine; Referring Provider Internal Medicine Critical Care Medicine; Visit Provider Internal Medicine Critical Care Medicine
DX: I48.0 Paroxysmal atrial fibrillation (principal); G47.33 Obstructive sleep apnea (adult) (pediatric)
CPT/HCPCS: 95811

== ENCOUNTER → 2020-10-28 14:11 | Outpatient (CLI) | payer MEDICARE, OTHER, SELFPAY ==
[2020-09-24 14:35] VITALS: BMI 26.2
== END ==
PROVIDERS: PCP Internal Medicine; Visit Provider Nurse Practitioner Acute Care
DX: Z46.89 Encounter for fitting and adjustment of other specified devices (principal)

== ENCOUNTER → 2020-11-25 15:44 | Outpatient (CLI) | payer MEDICARE, OTHER, SELFPAY ==
[2020-09-24 14:35] VITALS: BMI 26.2
[2020-11-25 17:30] LABS: Amphetamine Urine VISTA NEGATIVE (<1000 ng/mL); Barbiturate Urine VISTA NEGATIVE (< 200 ng/mL); Benzodiazepine Urine VISTA NEGATIVE (< 200 ng/mL); Cocaine Urine VISTA NEGATIVE (< 300 ng/mL); Ecstacy Urine VISTA NEGATIVE (< 500 ng/mL); Methadone Urine VISTA NEGATIVE (< 300 ng/mL); PCP Urine VISTA NEGATIVE (< 25 ng/mL); THC Urine VISTA NEGATIVE (< 50 ng/mL); Vista UDS pH Range 6
== END ==
PROVIDERS: PCP Internal Medicine; Referring Provider Anesthesiology Pain Medicine; Visit Provider Anesthesiology Pain Medicine
DX: F11.20 Opioid dependence, uncomplicated (principal)
CPT/HCPCS: 80307

== ENCOUNTER → 2020-12-12 08:55 | Outpatient (CLI) | payer MEDICARE, OTHER, SELFPAY ==
[2020-09-24 14:35] VITALS: BMI 26.2
[2020-12-12 10:17] LABS: Hematocrit 37.5 % (40-54); Hemoglobin 12.5 g/dL (13.0-16.5); Mean Corp Hgb Conc 33.3 g/dL (32-36); Mean Corpuscular Hgb 32.6 pg (27.0-32.0); Mean Corpuscular Volume 97.7 fL (80-94); Mean Platelet Vol. 9.3 fl (6.2-12.0); Platelet Count 137 K/mm3 (150-450); RBC Distribution Width CV 12.8 % (11.6-14.6); RBC Distribution Width SD 45.5 fl (35.1-43.9); Red Blood Count 3.84 M/mm3 (4.6-6.2); White Blood Count 7.1 K/mm3 (4.4-11.0)
[2020-12-12 10:28] LABS: Hemoglobin A1c 5.5 % (3.8-5.6)
[2020-12-12 10:36] LABS: AST(SGOT) 17 U/L (15-37); Alanine Aminotransfer ALT/SGPT 30 U/L (16-61); Albumin, Serum 3.8 g/dL (3.2-5.0); Alkaline Phosphatase 78 U/L (45-117); Bilirubin, Direct 0.12 mg/dL (0.00-0.30); Cholesterol 118 mg/dL (200); Globulin 3.9 g/dL (2.2-4.2); High Density Lipoprotein 36 mg/dL; Protein, Total 7.7 g/dL (6.4-8.2); Triglycerides 168 mg/dL; Very Low Density Lipoprotein 34 mg/dL (5-40)
[2020-12-13 04:07] LABS: Hepatitis C Ab <0.1 s/co ratio (0.0-0.9)
== END ==
PROVIDERS: Nurse Practitioner Family; PCP Internal Medicine; Visit Provider Internal Medicine
DX: E11.9 Type 2 diabetes mellitus without complications (principal); Z79.899 Other long term (current) drug therapy; Z11.59 Encounter for screening for other viral diseases
CPT/HCPCS: 36415; 80061; 80076; 82043; 82570; 83036; 85027; 86803; 86804

== ENCOUNTER → 2020-12-17 11:04 | Outpatient (CLI) | payer MEDICARE, OTHER, SELFPAY ==
[2020-09-24 14:35] VITALS: BMI 26.2
[2020-12-17 11:41] LABS: Microalbumin,Random Urine 5.2 mg/L (NO RANGE EST.); Microalbumin:Creatinine Ratio 4.9 mg/g CRE (<30 mg/g CRE)
== END ==
PROVIDERS: PCP Internal Medicine; Visit Provider Internal Medicine
DX: E11.9 Type 2 diabetes mellitus without complications (principal)
CPT/HCPCS: 82043; 82570

== ENCOUNTER → 2021-01-20 09:40 | Outpatient (CLI) | payer MEDICARE, OTHER, SELFPAY ==
[2020-12-24 13:35] VITALS: BMI 27.1
--- NOTE | 2021-01-20 09:49 | RAD_ITS ---
STUDY: X-RAY - RIGHT SHOULDER REASON FOR EXAM: Male, 75 years old. SHOULDER PAIN TECHNIQUE: 4 view(s) of the shoulder. COMPARISON: None. FINDINGS: There is mild degenerative arthrosis of the glenohumeral articulation. Normal acromioclavicular joint. Normal acromion. Normal humeral head and visualized proximal humerus. The soft tissue structures are unremarkable. Normal visualized pulmonary apex. RAD/Shoulder min 2 Views IMPRESSION: Mild glenohumeral joint arthrosis. Electronically Signed: Dru Ward MD at 13:24 EDT Tel , Service support ,
--- NOTE | 2021-01-20 09:49 | RAD_ITS ---
STUDY: X-RAY - LEFT SHOULDER REASON FOR EXAM: Male, 75 years old. SHOULDER PAIN TECHNIQUE: 4 view(s) of the shoulder. COMPARISON: None. FINDINGS: Normal glenohumeral articulation. Normal acromioclavicular joint. Normal acromion. Normal humeral head and visualized proximal humerus. The soft tissue structures are unremarkable. Normal visualized pulmonary apex. RAD/Shoulder min 2 Views IMPRESSION: Normal x-ray examination of the shoulder. Electronically Signed: Dru Ward MD at 13:25 EDT Tel , Service support ,
== END ==
PROVIDERS: PCP Internal Medicine; Visit Provider Anesthesiology Pain Medicine
DX: M25.511 Pain in right shoulder (principal); M25.512 Pain in left shoulder
CPT/HCPCS: 73030

== ENCOUNTER → 2021-09-08 16:39 | Outpatient (CLI) | payer MEDICARE, OTHER, SELFPAY ==
[2021-09-08 18:18] LABS: Amphetamine Urine VISTA NEGATIVE (<1000 ng/mL); Barbiturate Urine VISTA NEGATIVE (< 200 ng/mL); Benzodiazepine Urine VISTA NEGATIVE (< 200 ng/mL); Cocaine Urine VISTA NEGATIVE (< 300 ng/mL); Ecstacy Urine VISTA NEGATIVE (< 500 ng/mL); Methadone Urine VISTA NEGATIVE (< 300 ng/mL); PCP Urine VISTA NEGATIVE (< 25 ng/mL); THC Urine VISTA NEGATIVE (< 50 ng/mL); Vista UDS pH Range 7
== END ==
PROVIDERS: PCP Internal Medicine; Visit Provider Anesthesiology Pain Medicine
DX: F11.20 Opioid dependence, uncomplicated (principal)
CPT/HCPCS: 80307

== ENCOUNTER 2022-02-23 10:46 | Outpatient (CLI) | payer MEDICARE, OTHER, SELFPAY ==
[2022-02-23 11:42] LABS: Amphetamine Urine VISTA NEGATIVE (<1000 ng/mL); Barbiturate Urine VISTA NEGATIVE (< 200 ng/mL); Benzodiazepine Urine VISTA NEGATIVE (< 200 ng/mL); Cocaine Urine VISTA NEGATIVE (< 300 ng/mL); Ecstacy Urine VISTA NEGATIVE (< 500 ng/mL); Methadone Urine VISTA NEGATIVE (< 300 ng/mL); PCP Urine VISTA NEGATIVE (< 25 ng/mL); THC Urine VISTA NEGATIVE (< 50 ng/mL); Vista UDS pH Range 6
== END 2022-02-23 23:59 | disposition home or self-care (01) ==
LOC: LAB 10:48
PROVIDERS: PCP Internal Medicine; Referring Provider Anesthesiology Pain Medicine; Visit Provider Anesthesiology Pain Medicine
DX: F11.20 Opioid dependence, uncomplicated (principal)
CPT/HCPCS: 80307

== ENCOUNTER → 2023-02-07 | Outpatient (CLI) | payer MEDICARE, OTHER, SELFPAY ==
[2023-02-07 10:52] LABS: Amphetamine Urine VISTA NEGATIVE (<1000 ng/mL); Barbiturate Urine VISTA NEGATIVE (< 200 ng/mL); Benzodiazepine Urine VISTA NEGATIVE (< 200 ng/mL); Cocaine Urine VISTA NEGATIVE (< 300 ng/mL); Ecstacy Urine VISTA NEGATIVE (< 500 ng/mL); Methadone Urine VISTA NEGATIVE (< 300 ng/mL); PCP Urine VISTA NEGATIVE (< 25 ng/mL); THC Urine VISTA NEGATIVE (< 50 ng/mL); Vista UDS pH Range 6
== END | disposition home or self-care (01) ==
LOC: LAB 09:37
PROVIDERS: PCP Internal Medicine; Referring Provider Anesthesiology Pain Medicine; Visit Provider Anesthesiology Pain Medicine
DX: F11.20 Opioid dependence, uncomplicated (principal)
CPT/HCPCS: 80307

== ENCOUNTER 2023-09-27 11:47 | Emergency (ER) | payer MEDICARE, OTHER, SELFPAY ==
[2023-09-27 11:48] VITALS: BP 160/82; PULSE 99; RESP 18; TEMP 36.8; O2SAT 97; BMI 29.9
--- NOTE | 2023-09-27 12:10 | EX.ED.UPPERE ---
HPI History of Present Illness Chief Complaint: Upper Extremity Injury Informant: patient Occured/Mechanism Mechanism/Context: Yes fall Narrative Narrative: Patient presents after a fall. Patient has limited mobility at baseline and wears braces on both lower extremities. He states he was stepping off of a curb between 2 cars when he believes he caught his heel and fell. He fell onto his left arm that was tucked underneath him. He complains of pain to his left shoulder. He is right-hand dominant. He denies striking his head or loss of consciousness. He has no headache or neck pain. Patient is currently on Eliquis. [facility] Medical History Apophysitis Chronic low back pain Chronic right sacroiliac joint pain Essential hypertension Hyperlipidemia Hypersomnia Osteoarthritis of hip Paroxysmal atrial fibrillation Stroke-like symptoms TIA (transient ischemic attack) Lltty-Snbblehzx-Xwark (WPW) syndrome Home Medications calcium carb-ergocalciferol (vit D2) 600 mg calcium-200 unit tablet 1 tab PO DAILY supplement 01/20/18 [History Last Taken 09/26/23] acetaminophen 500 mg tablet 1,000 mg PO QHS pain 02/03/18 [History Last Taken 09/26/23] multivitamin 1 tab PO QDAY supplement 02/03/18 [History Last Taken 09/26/23] tizanidine 4 mg capsule (Zanaflex) 2 mg PO QHS 10/16/18 [History Last Taken 09/26/23] metformin 500 mg tablet,extended release 24 hr 500 mg PO DAILY #30 tabs 05/28/19 [Rx Last Taken 09/26/23] diphenhydramine HCl 25 mg capsule (Benadryl) 50 mg PO QHS 07/02/19 [History Last Taken 09/26/23] morphine 15 mg tablet,extended release (MS Contin) 15 mg PO Q12H 08/01/19 [History Last Taken 09/27/23] cetirizine 10 mg tablet 5 mg PO QHS 05/05/22 [History Last Taken 09/26/23] apixaban 5 mg tablet (Eliquis) 5 mg PO BID 11/05/22 [History Last Taken 09/26/23] furosemide 40 mg tablet 40 mg PO DAILY #90 tabs 05/09/23 [Rx Last Taken 09/26/23] lisinopril 20 mg tablet 20 mg PO DAILY #90 tabs 05/09/23 [Rx Last Taken 09/26/23] simvastatin 20 mg tablet 20 mg PO QPM #90 tabs 06/27/23 [Rx Last Taken 09/26/23] potassium chloride 10 mEq capsule,extended release 10 meq PO QDAY #90 caps 07/01/23 [Rx Last Taken 09/26/23] Allergy/AdvReac Type Severity Reaction Status Date / Time Beta-Blockers AdvReac Severe Other Verified 09/27/23 11:51 (Beta-Adrenergic Bloc Calcium Channel Blocking AdvReac Severe Other Verified 09/27/23 11:51 Agent Dilt digoxin AdvReac Severe Other Verified 09/27/23 11:51 Family History Sister Diabetes Heart disease Father , after age 65 from [place] CAD (coronary artery disease) Myocardial infarction Diabetes CHF (congestive heart failure) Rheumatoid arthritis Mother COPD (chronic obstructive pulmonary disease) Diabetes Rheumatoid arthritis Tuberculosis Surgical History H/O kyphoplasty History of hand surgery Social History Smoking Status: Never smoker second hand exposure: Yes ROS ROS ED Constitutional Constitutional ED: Denies chills or fever(s) Eyes Eyes: Denies discharge from eye(s) ENT ENT ED: Denies discharge from eye(s), rhinorrhea or sore throat Cardiovascular Cardiovascular: Denies chest pain or palpitations Respiratory/Chest Respiratory/Chest: Denies cough or dyspnea Gastrointestinal Gastrointestinal: Denies abdominal pain, nausea or vomiting Genitourinary Genitourinary ED: Denies dysuria Musculoskeletal Musculoskeletal: Reports extremity pain; Denies back pain or neck pain Integumentary Denies Abrasions or rash Neurologic Neurologic: Denies headache(s) or weakness Psychiatric Psychiatric: Denies anxiety or depression Allergic/Immunologic Allergic/Immunologic ED: Denies lip swelling or urticaria EXAM Physical Exam Const Vital Signs: 09/27/23 11:48 Temperature 98.2 F Temperature Source Oral Pulse Rate 99 Respiratory Rate 18 Blood Pressure 160/82 H Blood Pressure Mean 108 Pulse Ox 97 Oxygen Delivery Method Room Air Positive well nourished and well developed General Appearance ED: well developed HEENT Reports normocephalic and head/scalp atraumatic Eyes PERRL and EOMs intact bilaterally Neck supple Neck Narrative: No C-spine tenderness. Chest Wall inspection of chest normal and palpation of chest normal Resp normal respiratory effort and clear to auscultation bilaterally Cardio regular rate and regular rhythm GI normal to inspection, nondistended, normoactive bowel sounds Palpation: soft Extremity Extremity Narrative: Ecchymosis noted over the lateral aspect of the elbow. No bony tenderness of the elbow, forearm, wrist, or hand. Patient has mild tenderness at the left shoulder. No abrasions or ecchymosis noted to this area. Neuro oriented x3 and no sensory deficits noted Sensorium / Orientation: alert Psych mental status grossly normal Skin no rashes or lesions noted Skin Narrative: Ecchymosis to left elbow as noted above. MDM MDM MDM Narrative Medical decision making narrative: Patient given IM morphine for pain control. Left shoulder x-rays obtained to evaluate for fracture, dislocation. X-ray per my interpretation reveals an impacted left proximal humerus fracture. I do not appreciate clavicle or rib fractures. Radiology interpretation is reviewed and agrees. X-rays are reviewed with the patient. He is already on MS Contin at home. He will be given a sling and will follow up with [place] [facility] whom he has seen in the past. Discharge Plan Triage Chief Complaint: Upper Extremity Injury ED Provider: Lakesha Cook Dx/Rx/DC Orders Clinical Impression: Fracture, humerus closed Instructions: Understanding a Humerus Fracture Prescriptions: No Action calcium carb-ergocalciferol (vit D2) 600 mg calcium-200 unit tablet 600 mg calcium- 200 unit tablet 1 tab PO DAILY acetaminophen 500 mg tablet 1,000 mg PO QHS multivitamin tablet 1 tab PO QDAY tizanidine 4 mg capsule 4 mg capsule 2 mg PO QHS diphenhydramine HCl [Benadryl] 25 mg capsule 50 mg PO QHS morphine [MS Contin] 15 mg tablet extended release 15 mg PO Q12H cetirizine 10 mg tablet 5 mg PO QHS Eliquis 5 mg tablet 5 mg PO BID metformin 500 MG tablet 500 mg PO DAILY Qty: 30 0RF furosemide 40 mg tablet 40 mg PO DAILY Qty: 90 4RF lisinopril 20 mg tablet 20 mg PO DAILY Qty: 90 4RF simvastatin 20 mg tablet 20 mg PO QPM Qty: 90 4RF potassium chloride 10 mEq capsule, extended release 10 meq PO QDAY Qty: 90 4RF Primary Care Provider: Mariposa Dickerson Referrals: Mariposa Dickerson MD [Primary Care Provider] - Arpan Elias MD [Med Staff - Active Staff] - 5-7 Days Disposition Disposition: Home, Self Care
[2023-09-27] MEDS: morphine 10 MG/ML Syringe IM ×2 (12:20→13:05)
--- NOTE | 2023-09-27 12:30 | RAD_ITS ---
STUDY: X-RAY - LEFT SHOULDER REASON FOR EXAM: Male, 78 years old. Injury. Pain. TECHNIQUE: 2 view(s) of the shoulder. COMPARISON: January 20, 2021. FINDINGS: Osteopenia with comminuted impacted fracture of the left humeral surgical neck with avulsion of the greater trochanter. Moderate arthrosis of the glenohumeral joint and mild arthrosis of the AC joint Diffuse soft tissue swelling. Normal visualized pulmonary apex. RAD/Shoulder min 2 Views IMPRESSION: Osteopenia with comminuted impacted fracture of the left proximal humerus as described. Electronically Signed: Bryant Person MD at 12:53 EST ,
[2023-09-27 13:47] VITALS: BP 148/78; PULSE 98; RESP 16; O2SAT 95
[2023-09-27 13:57] VITALS: BP 146/80; PULSE 86; RESP 16; TEMP 36.7; O2SAT 97
== END 2023-09-27 13:59 | disposition home or self-care (01) ==
PROVIDERS: Emergency Provider Emergency Medicine; PCP Internal Medicine; Visit Provider Emergency Medicine
DX: S42.202A Unspecified fracture of upper end of left humerus, initial encounter for closed fracture (principal); I48.0 Paroxysmal atrial fibrillation; I10 Essential (primary) hypertension; E78.5 Hyperlipidemia, unspecified; W10.1XXA Fall (on)(from) sidewalk curb, initial encounter; Y92.89 Other specified places as the place of occurrence of the external cause; Z86.73 Personal history of transient ischemic attack (TIA), and cerebral infarction without residual deficits; Z79.01 Long term (current) use of anticoagulants; Z79.899 Other long term (current) drug therapy
CPT/HCPCS: 73030; 96372; 99284

== ENCOUNTER → 2025-02-28 | Outpatient (CLI) | payer MEDICARE, OTHER, SELFPAY ==
--- NOTE | 2025-02-28 14:05 | RAD_ITS ---
PROCEDURE: Pelvis and bilateral hip radiographs, 6 views 02/28/2025 REASON FOR EXAM: PAIN TECHNIQUE: 6 views of the pelvis and bilateral hips were obtained. COMPARISON: None available FINDINGS: 6 views of the pelvis and bilateral hips were obtained. The bones are osteopenic. Degenerative changes in the lower lumbar spine. Kyphoplasty changes of the level of L5. No displaced pelvic fracture. Mild degenerative changes in the hip joints. No acute fracture or dislocation of either hip. RAD/Hips B/L min 2 views w/ Pelvis IMPRESSION: Osteopenia. No acute bony abnormality of the pelvis/bilateral hips. Mild degenerative changes in the hip joints. Reading Location: [facility]
== END | disposition home or self-care (01) ==
LOC: RAD 14:01
PROVIDERS: PCP Internal Medicine; Referring Provider Anesthesiology Pain Medicine; Visit Provider Anesthesiology Pain Medicine
DX: M85.88 Other specified disorders of bone density and structure, other site (principal)
CPT/HCPCS: 73521